=== PATIENT | male | born 1935 | race Caucasian/White ===

== ENCOUNTER 2016-03-25 08:07 | Outpatient (CLI) | payer MEDICARE, OTHER | END 2016-03-25 08:08 | disposition home or self-care (01) | DX: I48.91 Unspecified atrial fibrillation (principal) ==

== ENCOUNTER 2016-05-06 09:24 | Outpatient (CLI) | payer MEDICARE, OTHER | END 2016-05-06 09:25 | disposition home or self-care (01) | DX: I48.91 Unspecified atrial fibrillation (principal) ==

== ENCOUNTER 2016-06-17 07:20 | Outpatient (CLI) | payer MEDICARE, OTHER | END 2016-06-17 07:21 | disposition home or self-care (01) | DX: I48.91 Unspecified atrial fibrillation (principal) ==

== ENCOUNTER 2016-07-29 08:47 | Outpatient (CLI) | payer MEDICARE, OTHER ==
[2016-07-29 09:08] LABS: BASOPHILS # (AUTO) 0.1 10^3/uL (0.0-0.1); BASOPHILS % (AUTO) 1.1 %; EOSINOPHILS # (AUTO) 0.2 10^3/uL (0.0-0.7); EOSINOPHILS % (AUTO) 4.2 %; HCT - HEMATOCRIT 42.9 % (42.0-52.0); HGB - HEMOGLOBIN 14.3 g/dL (14.0-18.0); LYMPHOCYTES # (AUTO) 1.5 10^3/uL (1.5-3.5); LYMPHOCYTES % (AUTO) 32.4 %; MEAN CORPUSCULAR HEMOGLOBIN 31.8 pg (27.0-31.0); MEAN CORPUSCULAR HGB CONC 33.4 g/dL (32.0-36.0); MEAN CORPUSCULAR VOLUME 95.3 fL (80.0-94.0); MEAN PLATELET VOLUME 8.1 fL (7.4-11.4); MONOCYTES # (AUTO) 0.4 10^3/uL (0.0-1.0); MONOCYTES % (AUTO) 9.3 %; NEUTROPHILS # (AUTO) 2.5 10^3/uL (1.5-6.6); NUCLEATED RED BLOOD CELLS AUTO 0.1 /100WBC; RED CELL DISTRIBUTION WIDTH 13.2 % (12.0-15.0); UNCORRECTED WHITE BLOOD COUNT 4.8 x10^3/uL; WHITE BLOOD COUNT 4.8 x10^3/uL (4.8-10.8)
== END 2016-07-29 08:48 | disposition home or self-care (01) ==
LOC: LAB 08:47
PROVIDERS: ATTEND Internal Medicine Cardiovascular Disease
DX: I48.91 Unspecified atrial fibrillation (principal); Z79.899 Other long term (current) drug therapy
CPT/HCPCS: 36415; 85025; 85610

== ENCOUNTER 2016-09-10 07:04 | Outpatient (CLI) | payer MEDICARE, OTHER | END 2016-09-10 07:05 | disposition home or self-care (01) | LOC: LAB 07:04 | PROVIDERS: ATTEND Internal Medicine Cardiovascular Disease | DX: I48.91 Unspecified atrial fibrillation (principal) | CPT/HCPCS: 85610 ==

== ENCOUNTER 2016-10-22 08:06 | Outpatient (CLI) | payer MEDICARE, OTHER | END 2016-10-22 08:07 | disposition home or self-care (01) | LOC: LAB 08:06 | PROVIDERS: ATTEND Internal Medicine Cardiovascular Disease | DX: I48.91 Unspecified atrial fibrillation (principal) | CPT/HCPCS: 85610 ==

== ENCOUNTER 2016-11-26 10:23 | Outpatient (CLI) | payer MEDICARE, OTHER | END 2016-11-26 10:24 | disposition home or self-care (01) | LOC: LAB 10:23 | PROVIDERS: ATTEND Internal Medicine Cardiovascular Disease | DX: I48.91 Unspecified atrial fibrillation (principal) | CPT/HCPCS: 85610 ==

== ENCOUNTER 2017-03-09 14:04 | Outpatient (CLI) | payer MEDICARE, OTHER | END 2017-03-09 14:05 | disposition home or self-care (01) | LOC: LAB 14:04 | PROVIDERS: ATTEND Internal Medicine Cardiovascular Disease | DX: I48.91 Unspecified atrial fibrillation (principal) | CPT/HCPCS: 85610 ==

== ENCOUNTER 2017-04-21 08:23 | Outpatient (CLI) | payer MEDICARE, OTHER | END 2017-04-21 08:24 | disposition home or self-care (01) | LOC: LAB 08:23 | PROVIDERS: ATTEND Internal Medicine Cardiovascular Disease | DX: I48.91 Unspecified atrial fibrillation (principal) | CPT/HCPCS: 85610 ==

== ENCOUNTER 2017-06-02 08:29 | Outpatient (CLI) | payer MEDICARE, OTHER | END 2017-06-02 08:30 | disposition home or self-care (01) | LOC: LAB 08:29 | PROVIDERS: ATTEND Internal Medicine Cardiovascular Disease | DX: I48.91 Unspecified atrial fibrillation (principal) | CPT/HCPCS: 85610 ==

== ENCOUNTER 2017-07-14 09:37 | Outpatient (CLI) | payer MEDICARE, OTHER | END 2017-07-14 09:38 | disposition home or self-care (01) | LOC: LAB 09:37 | PROVIDERS: ATTEND Internal Medicine Cardiovascular Disease | DX: I48.91 Unspecified atrial fibrillation (principal) | CPT/HCPCS: 85610 ==

== ENCOUNTER 2017-08-25 08:55 | Outpatient (CLI) | payer MEDICARE, OTHER | END 2017-08-25 08:56 | disposition home or self-care (01) | LOC: LAB 08:55 | PROVIDERS: ATTEND Internal Medicine Cardiovascular Disease | DX: I48.91 Unspecified atrial fibrillation (principal) | CPT/HCPCS: 85610 ==

== ENCOUNTER 2017-09-06 07:42 | Outpatient (CLI) | payer MEDICARE, OTHER | END 2017-09-06 07:43 | disposition home or self-care (01) | LOC: LAB 07:42 | PROVIDERS: ATTEND Internal Medicine Cardiovascular Disease | DX: I48.91 Unspecified atrial fibrillation (principal) | CPT/HCPCS: 85610 ==

== ENCOUNTER 2017-09-27 10:00 | Outpatient (CLI) | payer MEDICARE, OTHER | END 2017-09-27 10:01 | disposition home or self-care (01) | LOC: LAB 10:00 | PROVIDERS: ATTEND Internal Medicine Cardiovascular Disease | DX: I48.91 Unspecified atrial fibrillation (principal) | CPT/HCPCS: 85610 ==

== ENCOUNTER 2017-10-25 15:48 | Outpatient (CLI) | payer MEDICARE, OTHER | END 2017-10-25 15:49 | disposition home or self-care (01) | LOC: LAB 15:48 | PROVIDERS: ATTEND Internal Medicine Cardiovascular Disease | DX: I48.91 Unspecified atrial fibrillation (principal) | CPT/HCPCS: 85610 ==

== ENCOUNTER 2017-11-22 07:37 | Outpatient (CLI) | payer MEDICARE, OTHER | END 2017-11-22 07:38 | disposition home or self-care (01) | LOC: LAB 07:37 | PROVIDERS: ATTEND Internal Medicine Cardiovascular Disease | DX: I48.91 Unspecified atrial fibrillation (principal) | CPT/HCPCS: 85610 ==

== ENCOUNTER 2018-01-03 07:55 | Outpatient (CLI) | payer MEDICARE, OTHER ==
[2018-01-03 08:43] LABS: EOSINOPHILS # (AUTO) 0.2 10^3/uL (0.0-0.7); HGB - HEMOGLOBIN 14.7 g/dL (14.0-18.0); LYMPHOCYTES # (AUTO) 1.4 10^3/uL (1.5-3.5); LYMPHOCYTES % (AUTO) 28.2 %; MEAN CORPUSCULAR HEMOGLOBIN 31.9 pg (27.0-31.0); MEAN CORPUSCULAR HGB CONC 33.7 g/dL (32.0-36.0); MEAN CORPUSCULAR VOLUME 94.6 fL (80.0-94.0); MONOCYTES # (AUTO) 0.4 10^3/uL (0.0-1.0); MONOCYTES % (AUTO) 7.4 %; NEUTROPHILS # (AUTO) 2.8 10^3/uL (1.5-6.6); NEUTROPHILS % (AUTO) 59.4 %; PLT - PLATELET COUNT 187 10^3/uL (130-450); RED BLOOD COUNT 4.62 10^6/uL (4.70-6.10); RED CELL DISTRIBUTION WIDTH 13.6 % (12.0-15.0); WHITE BLOOD COUNT 4.8 x10^3/uL (4.8-10.8)
[2018-01-03 08:44] LABS: INR 3.2 (0.8-1.2); PT - PROTHROMBIN TIME 35.7 secs (9.9-12.6)
[2018-01-03 09:03] LABS: ALBUMIN 4.2 g/dL (3.2-5.5); ALBUMIN/GLOBULIN RATIO 1.4 (1.0-2.2); ALKALINE PHOSPHATASE 74 IU/L (42-121); ALT ALANINE AMINOTRANSFERASE 23 IU/L (10-60); AST ASPARTATE AMINOTRANSFERASE 22 IU/L (10-42); BILIRUBIN,TOTAL 1.8 mg/dL (0.2-1.0); BUN - BLOOD UREA NITROGEN 17 mg/dL (6-20); CALCIUM 8.7 mg/dL (8.5-10.3); CARBON DIOXIDE - CO2 28 mmol/L (21-32); CHLORIDE 103 mmol/L (101-111); CHOL/HDL RATIO 3.6 (<5.0); CHOLESTEROL 130 mg/dL; CREATININE 0.9 mg/dL (0.6-1.2); GFR - MDRD 81 (>89); GLUCOSE 101 mg/dL (70-100); HDL CHOLESTEROL 36 mg/dL; LDL CHOLESTEROL,CALCULATED 79 mg/dL; LDL/HDL RATIO 2.2 (<3.6); SODIUM 137 mmol/L (135-145); TOTAL PROTEIN 7.2 g/dL (6.7-8.2); VLDL CHOLESTEROL 15 mg/dL
[2018-01-03 09:11] LABS: HB2 TOTAL 16.2 g/dL; HEMOGLOBIN A1C 0.67 g/dL; HEMOGLOBIN A1C % 5.9 % (4.6-6.2)
== END 2018-01-03 07:56 | disposition home or self-care (01) ==
LOC: LAB 07:55
PROVIDERS: ATTEND Physician Assistant Medical
DX: R73.9 Hyperglycemia, unspecified (principal); Z79.899 Other long term (current) drug therapy; I48.91 Unspecified atrial fibrillation; E78.2 Mixed hyperlipidemia
CPT/HCPCS: 36415; 80053; 80061; 83036; 83721; 84443; 85025; 85610

== ENCOUNTER 2018-01-31 13:05 | Outpatient (CLI) | payer MEDICARE, OTHER | END 2018-01-31 13:06 | disposition home or self-care (01) | LOC: LAB 13:05 | PROVIDERS: ATTEND Internal Medicine Cardiovascular Disease | DX: I48.91 Unspecified atrial fibrillation (principal) | CPT/HCPCS: 85610 ==

== ENCOUNTER 2018-02-15 15:26 | Outpatient (CLI) | payer MEDICARE, OTHER ==
--- NOTE | 2018-02-16 09:24 | Ultrasound Report ---
Reason: DIZZINESS ON STANDING Procedure Date: 02/15/2018 Accession Number: [id number] / [id number] Procedure: US - Carotid Doppler Complete CPT Code: FULL RESULT: EXAM: BILATERAL CAROTID AND VERTEBRAL ARTERY DUPLEX DOPPLER ULTRASOUND: EXAM DATE: 02/15/2018 03:47 PM CLINICAL HISTORY: Dizziness on standing. COMPARISON: Carotid doppler complete 11/18/2015 8:39 AM. TECHNIQUE: Grayscale imaging, color Doppler, and duplex spectral Doppler were used to evaluate the carotid and vertebral arteries bilaterally. Static images were obtained. FINDINGS: Visually, the right carotid bulb region demonstrates echogenic and hypoechoic plaque of approximately 60% of the lumen with approximately 60% luminal narrowing on color Doppler also identified in the proximal right ICA downstream of which spectral waveforms demonstrate progressive contribution of the diastolic flow component with preservation of brisk systolic upstroke. Approximately 25-50% stenosis is visually identified on grayscale in the left carotid bulb region. The proximal to mid left external carotid artery is occluded or near occluded with no confidently detected flow by spectral Doppler. Normal antegrade flow is present in bilateral vertebral arteries. VELOCITIES (cm/sec): Right CCA mid: PSV 82 cm/sec CCA dist: PSV 55 cm/sec ICA prox: PSV 58 cm/sec, EDV 19 cm/sec ICA mid: PSV 61 cm/sec, EDV 18 cm/sec ICA dist: PSV 41 cm/sec, EDV 11 cm/sec ECA: PSV 63 cm/sec Vert: PSV 51 cm/sec ICA/CCA: 0.74 Left CCA mid: PSV 99 cm/sec CCA dist: PSV 64 cm/sec ICA prox: PSV 59 cm/sec, EDV 20 cm/sec ICA mid: PSV 82 cm/sec, EDV 29 cm/sec ICA dist: PSV 48 cm/sec, EDV 16 cm/sec ECA: PSV 81 cm/sec Vert: PSV 35 cm/sec ICA/CCA: 0.82 ICA diameter stenosis: Right: <50% by velocity and <70% by NASCET criteria. Left: <50% by velocity and <70% by NASCET criteria. IMPRESSION: 1. Subjectively approximate 50-60% visual narrowing of both carotid bulb regions as well as the right proximal ICA. 2. In the right carotid artery there are no elevated carotid artery velocities to meet hemodynamic criteria for significant stenosis. However, there is a progressively increasing diastolic component to the right internal carotid artery waveform suggestive of at least mild hemodynamic effect of the visually detected proximal ICA stenosis. 3. In the left carotid artery there are no elevated carotid artery velocities to suggest hemodynamically significant stenosis. 4. Interval near occlusion or complete occlusion of the left external carotid artery is suspected. 5.Normal antegrade flow is present in bilateral vertebral arteries. Given interval progression of findings compared to 2016, recommend consideration for CTA of the neck to clarify the findings. General Recommendations: Stenosis =50% ICA - Follow-up ultrasound 6-12 months Stenosis <50% ICA - High Risk Patient with plaque - Follow-up ultrasound 1-2 years Normal Study but High Risk Patient - Follow-up ultrasound 3-5 years Management recommendations and diagnostic criteria are based on current IAC endorsed standards in Carotid Artery Stenosis: Grayscale and Doppler Ultrasound Diagnosis. Validated velocity measurements with angiographic measurements and velocity criteria are extrapolated from diameter data as defined by the Society of Radiologists in Ultrasound Consensus Conference Radiology 2003; 229;340-346. RADIA
== END 2018-02-15 15:27 | disposition home or self-care (01) ==
LOC: DI 15:26
PROVIDERS: ATTEND Physician Assistant Medical
DX: R42 Dizziness and giddiness (principal)
CPT/HCPCS: 93880

== ENCOUNTER 2018-02-27 10:52 | Outpatient (CLI) | payer MEDICARE, OTHER ==
[2018-02-27] MEDS ORDERED: IOVERSOL 320 100 ML VIAL IVP ONE ×2 (11:00→16:38)
[2018-02-27 11:13] LABS: CREATININE 0.7 mg/dL (0.6-1.2)
--- NOTE | 2018-02-27 13:10 | CT Report ---
Reason: CAROTID ARTERY STENOSIS,BILATERAL, Procedure Date: 02/27/2018 Accession Number: [id number] / [id number] Procedure: CT - Neck Angio CPT Code: FULL RESULT: EXAM: CT ANGIOGRAM NECK EXAM DATE: 02/27/2018 11:58 AM. CLINICAL HISTORY: Carotid artery stenosis, bilateral. COMPARISON: Carotid ultrasound report 02/15/2018. TECHNIQUE: Routine axial helical imaging was performed from the skull base through the aortic arch. Reconstructions: Routine multiplanar 3D MIP reconstructions. IV Contrast: Optiray 320 80 mL. Evaluation of arterial stenosis is based on a NASCET method of measurement. In accordance with CT protocol optimization, one or more of the following dose reduction techniques were utilized for this exam: automated exposure control, adjustment of mA and/or KV based on patient size, or use of iterative reconstructive technique. FINDINGS: Right Carotid: Atherosclerotic plaque is seen involving the origin of the cervical ICA and proximal cervical ICA. This results in a less than 50% stenosis. Left Carotid: Atherosclerotic plaque is seen in the origin and proximal cervical ICA. This results in a less than 50% stenosis of the cervical ICA. Vertebrals: The left vertebral artery is dominant. Minimal narrowing is seen at the origin of the dominant left vertebral artery. Areas of mild stenosis are seen in the V2 segment of the nondominant right vertebral artery due to degenerative changes in the spine. The nondominant right cervical vertebral arteries patent Intracranial Circulation: The intracranial circulation is not seen in its entirety. There is atherosclerotic calcification and a high-grade stenosis of the distal right vertebral artery at its more distal V4 segment. Moderate stenosis is seen in the mid V4 segment and more proximal V4 segment of the left vertebral artery. No high-grade stenosis or occlusion is seen in the M1 segment of either MCA or in the basilar trunk. There is a origin to the right [employer] via a posterior communicating artery. Mild narrowing is seen due to atherosclerosis in the cavernous ICA bilaterally. Great vessel origins: No significant stenosis. Other: No mass is present in either orbit. There appears to be a defect in the left anterior frontal scalp. No mass is present in either parotid gland or in either submandibular gland. The thyroid gland is not enlarged. No bulky lymphadenopathy is identified in the neck. No suspicious spiculated mass is present in either lung apex. No suspicious lytic or blastic region is present in the cervical vertebral bodies. Mucosal thickening is seen in the left maxillary sinus. Retention cyst/polyp formation is seen in the right maxillary sinus. IMPRESSION: 1. No hemodynamically significant stenosis is present in either cervical ICA. 2. Areas of mild stenosis are seen in the nondominant right vertebral artery. This is due to degenerative changes in the spine 3. Intracranial stenosis is present in each vertebral artery V4 segment. 4. Mild narrowing is seen in the cavernous ICA bilaterally. 5. Left maxillary sinus mucosal thickening. Right maxillary sinus retention cyst/polyp formation. RADIA
== END 2018-02-27 10:53 | disposition home or self-care (01) ==
LOC: LAB 10:52
PROVIDERS: ATTEND Physician Assistant Medical
DX: I65.23 Occlusion and stenosis of bilateral carotid arteries (principal); I65.03 Occlusion and stenosis of bilateral vertebral arteries; J34.1 Cyst and mucocele of nose and nasal sinus
CPT/HCPCS: 36415; 70498; 82565; Q9967

== ENCOUNTER 2018-03-14 09:17 | Outpatient (CLI) | payer MEDICARE, OTHER | END 2018-03-14 09:18 | disposition home or self-care (01) | LOC: LAB 09:17 | PROVIDERS: ATTEND Internal Medicine Cardiovascular Disease | DX: I48.91 Unspecified atrial fibrillation (principal) | CPT/HCPCS: 85610 ==

== ENCOUNTER 2018-05-31 08:17 | Outpatient (CLI) | payer MEDICARE, OTHER | END 2018-05-31 08:18 | disposition home or self-care (01) | LOC: LAB 08:17 | PROVIDERS: ATTEND Family Medicine | DX: I48.91 Unspecified atrial fibrillation (principal); Z79.01 Long term (current) use of anticoagulants | CPT/HCPCS: 85610 ==

== ENCOUNTER 2018-07-13 08:49 | Outpatient (CLI) | payer MEDICARE, OTHER ==
[2018-07-13 09:36] LABS: PT - PROTHROMBIN TIME 32.8 secs (9.9-12.6)
== END 2018-07-13 08:50 | disposition home or self-care (01) ==
LOC: LAB 08:49
PROVIDERS: ATTEND Internal Medicine Cardiovascular Disease
DX: Z51.81 Encounter for therapeutic drug level monitoring (principal); Z79.01 Long term (current) use of anticoagulants
CPT/HCPCS: 36415; 85610

== ENCOUNTER 2018-08-31 09:45 | Outpatient (CLI) | payer MEDICARE, OTHER | END 2018-08-31 09:46 | disposition home or self-care (01) | LOC: LAB 09:45 | PROVIDERS: ATTEND Internal Medicine Cardiovascular Disease | DX: Z51.81 Encounter for therapeutic drug level monitoring (principal); Z79.01 Long term (current) use of anticoagulants | CPT/HCPCS: 85610 ==

== ENCOUNTER 2018-10-17 08:43 | Outpatient (CLI) | payer MEDICARE, OTHER | END 2018-10-17 08:44 | disposition home or self-care (01) | LOC: LAB 08:43 | PROVIDERS: ATTEND Internal Medicine Cardiovascular Disease | DX: Z51.81 Encounter for therapeutic drug level monitoring (principal); Z79.01 Long term (current) use of anticoagulants | CPT/HCPCS: 85610 ==

== ENCOUNTER 2018-11-28 08:08 | Outpatient (CLI) | payer MEDICARE, OTHER | END 2018-11-28 08:09 | disposition home or self-care (01) | LOC: LAB 08:08 | PROVIDERS: ATTEND Internal Medicine Cardiovascular Disease | DX: Z51.81 Encounter for therapeutic drug level monitoring (principal); Z79.01 Long term (current) use of anticoagulants | CPT/HCPCS: 85610 ==

== ENCOUNTER 2019-01-09 07:09 | Outpatient (CLI) | payer MEDICARE, OTHER | END 2019-01-09 07:10 | disposition home or self-care (01) | LOC: LAB 07:09 | PROVIDERS: ATTEND Internal Medicine Cardiovascular Disease | DX: Z51.81 Encounter for therapeutic drug level monitoring (principal); Z79.01 Long term (current) use of anticoagulants | CPT/HCPCS: 85610 ==

== ENCOUNTER 2019-02-05 08:27 | Outpatient (CLI) | payer MEDICARE, OTHER ==
[2019-02-05 09:10] LABS: BASOPHILS # (AUTO) 0.1 10^3/uL (0.0-0.1); BASOPHILS % (AUTO) 1.1 %; EOSINOPHILS # (AUTO) 0.2 10^3/uL (0.0-0.7); EOSINOPHILS % (AUTO) 3.9 %; HGB - HEMOGLOBIN 14.9 g/dL (14.0-18.0); LYMPHOCYTES # (AUTO) 1.6 10^3/uL (1.5-3.5); LYMPHOCYTES % (AUTO) 26.3 %; MEAN CORPUSCULAR HEMOGLOBIN 31.5 pg (27.0-31.0); MEAN CORPUSCULAR HGB CONC 32.3 g/dL (32.0-36.0); MEAN CORPUSCULAR VOLUME 97.5 fL (80.0-94.0); MEAN PLATELET VOLUME 10.1 fL (7.4-11.4); MONOCYTES # (AUTO) 0.4 10^3/uL (0.0-1.0); NEUTROPHILS # (AUTO) 3.8 10^3/uL (1.5-6.6); NEUTROPHILS % (AUTO) 62.4 %; PLT - PLATELET COUNT 233 10^3/uL (130-450); RED BLOOD COUNT 4.73 10^6/uL (4.70-6.10); WHITE BLOOD COUNT 6.1 x10^3/uL (4.8-10.8)
[2019-02-05 09:27] LABS: ALBUMIN/GLOBULIN RATIO 1.1 (1.0-2.2); ALKALINE PHOSPHATASE 73 IU/L (42-121); ALT ALANINE AMINOTRANSFERASE 29 IU/L (10-60); AST ASPARTATE AMINOTRANSFERASE 24 IU/L (10-42); BILIRUBIN,TOTAL 1.5 mg/dL (0.2-1.0); BUN - BLOOD UREA NITROGEN 15 mg/dL (6-20); CALCIUM 9.2 mg/dL (8.5-10.3); CARBON DIOXIDE - CO2 32 mmol/L (21-32); CHLORIDE 103 mmol/L (101-111); CHOLESTEROL 130 mg/dL; CREATININE 0.9 mg/dL (0.6-1.2); GFR - MDRD 81 (>89); GLUCOSE 108 mg/dL (70-100); HDL CHOLESTEROL 43 mg/dL; LDL CHOLESTEROL,CALCULATED 68 mg/dL; LDL/HDL RATIO 1.6 (<3.6); SODIUM 140 mmol/L (135-145); TOTAL PROTEIN 7.6 g/dL (6.7-8.2); VLDL CHOLESTEROL 19 mg/dL
[2019-02-05 10:22] LABS: HEMOGLOBIN A1C 0.66 g/dL; HEMOGLOBIN A1C % 6.2 % (4.6-6.2)
== END 2019-02-05 08:28 | disposition home or self-care (01) ==
LOC: LAB 08:27
PROVIDERS: ATTEND Nurse Practitioner
DX: Z00.00 Encounter for general adult medical examination without abnormal findings (principal); E80.7 Disorder of bilirubin metabolism, unspecified; R42 Dizziness and giddiness; Z12.5 Encounter for screening for malignant neoplasm of prostate; Z79.899 Other long term (current) drug therapy; R73.9 Hyperglycemia, unspecified; E78.2 Mixed hyperlipidemia; I48.91 Unspecified atrial fibrillation; I49.9 Cardiac arrhythmia, unspecified
CPT/HCPCS: 36415; 80053; 80061; 83036; 84443; 85025; G0103; 83721; 84153

== ENCOUNTER 2019-02-13 09:50 | Outpatient (CLI) | payer MEDICARE, OTHER ==
--- NOTE | 2019-02-13 13:32 | XRAY Report ---
Reason: HIP LEFT LOW BACK PAIN Procedure Date: 02/13/2019 Accession Number: [id number] / [id number] Procedure: XR - Lumbar Spine 2 View CPT Code: Final Report FULL RESULT: EXAM: LUMBOSACRAL SPINE RADIOGRAPHY EXAM DATE: 02/13/2019 10:22 AM. CLINICAL HISTORY: Hip and left low back pain. COMPARISONS: XR LUMBOSACRAL SPINE 4 VIEWS 03/12/2011 8:22 AM. TECHNIQUE: 3 views. FINDINGS: Alignment: Up to 5 mm anterolisthesis of L3 on L4 and up to 4 mm anterolisthesis of L4 on L5, possibly exacerbated by positioning. No significant scoliosis. Bones: Five yqy-jyr-wjfnyrk lumbar vertebral bodies are present. No fractures or bone lesions. Disks: All disk space heights are mostly preserved. There is prominent marginal osteophytosis at T11-T12 and T12-L1. Facets: There is facet arthropathy throughout the lumbar spine, at least moderate. Sacroiliac Joints: Unremarkable. Soft Tissues: Normal. The visualized bowel gas pattern is normal. IMPRESSION: Facet arthropathy and multilevel anterolisthesis as described. RADIA
--- NOTE | 2019-02-13 13:34 | XRAY Report ---
Reason: HIP LEFT LOW BACK PAIN Procedure Date: 02/13/2019 Accession Number: [id number] / [id number] Procedure: XR - Hip w/Pelvis 2-3V LT CPT Code: Final Report FULL RESULT: EXAM: LEFT HIP RADIOGRAPHY EXAM DATE: 02/13/2019 10:22 AM. CLINICAL HISTORY: Hip left; low back pain. COMPARISON: None. TECHNIQUE: 2 views of the left hip and a frontal view of the pelvis were obtained. FINDINGS: Bones: Normal. No fractures or bone lesion. Joints: No significant marginal osteophytosis. No dislocation. The hip joint space is mildly narrowed bilaterally. Soft Tissues: Normal. No soft tissue swelling. IMPRESSION: Mild degenerative changes. RADIA
== END 2019-02-13 09:51 | disposition home or self-care (01) ==
LOC: DI 09:50
PROVIDERS: ATTEND Nurse Practitioner
DX: M16.12 Unilateral primary osteoarthritis, left hip (principal); M47.816 Spondylosis without myelopathy or radiculopathy, lumbar region; M43.16 Spondylolisthesis, lumbar region
CPT/HCPCS: 72100

== ENCOUNTER 2019-02-20 10:53 | Outpatient (CLI) | payer MEDICARE, OTHER | END 2019-02-20 10:54 | disposition home or self-care (01) | LOC: LAB 10:53 | PROVIDERS: ATTEND Internal Medicine Cardiovascular Disease | DX: Z51.81 Encounter for therapeutic drug level monitoring (principal); Z79.01 Long term (current) use of anticoagulants | CPT/HCPCS: 85610 ==

== ENCOUNTER 2019-03-20 09:18 | Outpatient (CLI) | payer MEDICARE | END 2019-03-20 09:19 | disposition home or self-care (01) | LOC: LAB 09:18 | PROVIDERS: ATTEND Internal Medicine Cardiovascular Disease | DX: Z51.81 Encounter for therapeutic drug level monitoring (principal); Z79.01 Long term (current) use of anticoagulants | CPT/HCPCS: 85610 ==

== ENCOUNTER 2019-04-17 08:27 | Outpatient (CLI) | payer MEDICARE | END 2019-04-17 08:28 | disposition home or self-care (01) | LOC: LAB 08:27 | PROVIDERS: ATTEND Internal Medicine Cardiovascular Disease | DX: Z51.81 Encounter for therapeutic drug level monitoring (principal); Z79.01 Long term (current) use of anticoagulants | CPT/HCPCS: 85610 ==

== ENCOUNTER 2019-05-29 08:32 | Outpatient (CLI) | payer MEDICARE | END 2019-05-29 08:33 | disposition home or self-care (01) | LOC: LAB 08:32 | PROVIDERS: ATTEND Internal Medicine Cardiovascular Disease | DX: Z51.81 Encounter for therapeutic drug level monitoring (principal); Z79.01 Long term (current) use of anticoagulants | CPT/HCPCS: 85610 ==

== ENCOUNTER 2019-07-10 08:42 | Outpatient (CLI) | payer MEDICARE | END 2019-07-10 08:43 | disposition home or self-care (01) | LOC: LAB 08:42 | PROVIDERS: ATTEND Internal Medicine Cardiovascular Disease | DX: Z51.81 Encounter for therapeutic drug level monitoring (principal); Z79.01 Long term (current) use of anticoagulants | CPT/HCPCS: 85610 ==

== ENCOUNTER 2019-08-21 09:59 | Outpatient (CLI) | payer MEDICARE | END 2019-08-21 10:00 | disposition home or self-care (01) | LOC: LAB 09:59 | PROVIDERS: ATTEND Internal Medicine Cardiovascular Disease | DX: Z51.81 Encounter for therapeutic drug level monitoring (principal); Z79.01 Long term (current) use of anticoagulants | CPT/HCPCS: 85610 ==

== ENCOUNTER 2019-10-03 07:24 | Outpatient (CLI) | payer MEDICARE | END 2019-10-03 07:25 | disposition home or self-care (01) | LOC: LAB 07:24 | PROVIDERS: ATTEND Internal Medicine Cardiovascular Disease | DX: Z51.81 Encounter for therapeutic drug level monitoring (principal); Z79.01 Long term (current) use of anticoagulants | CPT/HCPCS: 85610 ==

== ENCOUNTER 2019-12-28 08:34 | Outpatient (CLI) | payer MEDICARE | END 2019-12-28 08:35 | disposition home or self-care (01) | LOC: LAB 08:34 | PROVIDERS: ATTEND Nurse Practitioner | DX: R53.83 Other fatigue (principal); N52.9 Male erectile dysfunction, unspecified | CPT/HCPCS: 36415; 84403 ==

== ENCOUNTER 2020-01-10 08:09 | Outpatient (CLI) | payer MEDICARE | END 2020-01-10 08:10 | disposition home or self-care (01) | LOC: LAB 08:09 | PROVIDERS: ATTEND Internal Medicine Cardiovascular Disease | DX: Z51.81 Encounter for therapeutic drug level monitoring (principal); Z79.01 Long term (current) use of anticoagulants | CPT/HCPCS: 85610 ==

== ENCOUNTER 2020-01-14 09:28 | Outpatient (CLI) | payer MEDICARE | END 2020-01-14 09:29 | disposition home or self-care (01) | LOC: LAB 09:28 | PROVIDERS: ATTEND Nurse Practitioner | DX: E29.1 Testicular hypofunction (principal) | CPT/HCPCS: 36415; 84403 ==

== ENCOUNTER 2020-01-31 09:29 | Outpatient (CLI) | payer MEDICARE | END 2020-01-31 09:30 | disposition home or self-care (01) | LOC: LAB 09:29 | PROVIDERS: ATTEND Internal Medicine Cardiovascular Disease | DX: Z51.81 Encounter for therapeutic drug level monitoring (principal); Z79.01 Long term (current) use of anticoagulants | CPT/HCPCS: 85610 ==

== ENCOUNTER 2020-03-13 07:06 | Outpatient (CLI) | payer BC ==
[2020-03-13 07:48] LABS: CHOL/HDL RATIO 3.4 (<5.0); CHOLESTEROL 128 mg/dL; HDL CHOLESTEROL 38 mg/dL; LDL CHOLESTEROL,CALCULATED 68 mg/dL; LDL/HDL RATIO 1.8 (<3.6); VLDL CHOLESTEROL 22 mg/dL
== END 2020-03-13 07:07 | disposition home or self-care (01) ==
LOC: LAB 07:06
PROVIDERS: ATTEND Internal Medicine Cardiovascular Disease
DX: I10 Essential (primary) hypertension (principal); Z51.81 Encounter for therapeutic drug level monitoring; Z79.01 Long term (current) use of anticoagulants
CPT/HCPCS: 36415; 80061; 83721; 85610

== ENCOUNTER 2020-04-24 08:00 | Outpatient (CLI) | payer MEDICARE | END 2020-04-24 08:01 | disposition home or self-care (01) | LOC: LAB 08:00 | PROVIDERS: ATTEND Internal Medicine Cardiovascular Disease | DX: Z51.81 Encounter for therapeutic drug level monitoring (principal); Z79.01 Long term (current) use of anticoagulants | CPT/HCPCS: 85610 ==

== ENCOUNTER 2020-06-05 08:10 | Outpatient (CLI) | payer MEDICARE | END 2020-06-05 08:11 | disposition home or self-care (01) | LOC: LAB 08:10 | PROVIDERS: ATTEND Internal Medicine Cardiovascular Disease | DX: Z51.81 Encounter for therapeutic drug level monitoring (principal); Z79.01 Long term (current) use of anticoagulants | CPT/HCPCS: 85610 ==

== ENCOUNTER 2020-07-17 07:23 | Outpatient (CLI) | payer MEDICARE | END 2020-07-17 07:24 | disposition home or self-care (01) | LOC: LAB 07:23 | PROVIDERS: ATTEND Internal Medicine Cardiovascular Disease | DX: Z51.81 Encounter for therapeutic drug level monitoring (principal); Z79.01 Long term (current) use of anticoagulants | CPT/HCPCS: 36416; 85610 ==

== ENCOUNTER 2020-08-28 08:27 | Outpatient (CLI) | payer MEDICARE | END 2020-08-28 08:28 | disposition home or self-care (01) | LOC: LAB 08:27 | PROVIDERS: ATTEND Internal Medicine Cardiovascular Disease | DX: Z51.81 Encounter for therapeutic drug level monitoring (principal); Z79.01 Long term (current) use of anticoagulants | CPT/HCPCS: 36416; 85610 ==

== ENCOUNTER 2020-10-09 07:53 | Outpatient (CLI) | payer MEDICARE | END 2020-10-09 07:54 | disposition home or self-care (01) | LOC: LAB 07:53 | PROVIDERS: ATTEND Internal Medicine Cardiovascular Disease | DX: Z51.81 Encounter for therapeutic drug level monitoring (principal); Z79.01 Long term (current) use of anticoagulants | CPT/HCPCS: 36416; 85610 ==

== ENCOUNTER 2020-10-23 07:53 | Outpatient (CLI) | payer MEDICARE ==
[2020-10-23 08:09] LABS: HCT - HEMATOCRIT 43.9 % (42.0-52.0); HGB - HEMOGLOBIN 14.7 g/dL (14.0-18.0); MEAN CORPUSCULAR HEMOGLOBIN 32.4 pg (27.0-31.0); MEAN CORPUSCULAR HGB CONC 33.5 g/dL (32.0-36.0); MEAN CORPUSCULAR VOLUME 96.7 fL (80.0-94.0); MEAN PLATELET VOLUME 9.9 fL (7.4-11.4); RED BLOOD COUNT 4.54 10^6/uL (4.70-6.10); RED CELL DISTRIBUTION WIDTH 12.9 % (12.0-15.0); WHITE BLOOD COUNT 6.1 x10^3/uL (4.8-10.8)
[2020-10-23 08:29] LABS: CHOL/HDL RATIO 3.1 (<5.0); CHOLESTEROL 130 mg/dL; HDL CHOLESTEROL 42 mg/dL; LDL CHOLESTEROL,CALCULATED 70 mg/dL; LDL/HDL RATIO 1.7 (<3.6); TRIGLYCERIDES 89 mg/dL; VLDL CHOLESTEROL 18 mg/dL
== END 2020-10-23 07:54 | disposition home or self-care (01) ==
LOC: LAB 07:53
PROVIDERS: ATTEND Internal Medicine Cardiovascular Disease
DX: I25.2 Old myocardial infarction (principal); I48.91 Unspecified atrial fibrillation
CPT/HCPCS: 36415; 80061; 83721; 85027; 85610

== ENCOUNTER 2020-12-18 08:25 | Outpatient (CLI) | payer MEDICARE | END 2020-12-18 08:26 | disposition home or self-care (01) | LOC: LAB 08:25 | PROVIDERS: ATTEND Internal Medicine Cardiovascular Disease | DX: Z51.81 Encounter for therapeutic drug level monitoring (principal); Z79.01 Long term (current) use of anticoagulants | CPT/HCPCS: 36416; 85610 ==

== ENCOUNTER 2021-02-12 15:00 | Outpatient (CLI) | payer MEDICARE | END 2021-02-12 15:01 | disposition home or self-care (01) | LOC: LAB 15:00 | PROVIDERS: ATTEND Internal Medicine Cardiovascular Disease | DX: Z51.81 Encounter for therapeutic drug level monitoring (principal); Z79.01 Long term (current) use of anticoagulants | CPT/HCPCS: 36416; 85610 ==

== ENCOUNTER 2021-04-09 08:14 | Outpatient (CLI) | payer MEDICARE | END 2021-04-09 08:15 | disposition home or self-care (01) | LOC: LAB 08:14 | PROVIDERS: ATTEND Internal Medicine Cardiovascular Disease | DX: Z51.81 Encounter for therapeutic drug level monitoring (principal); Z79.01 Long term (current) use of anticoagulants | CPT/HCPCS: 36416; 85610 ==

== ENCOUNTER 2021-05-05 14:39 | Outpatient (CLI) | payer MEDICARE | END 2021-05-05 14:40 | disposition home or self-care (01) | LOC: LAB 14:39 | PROVIDERS: ATTEND Internal Medicine Cardiovascular Disease | DX: Z51.81 Encounter for therapeutic drug level monitoring (principal); Z79.01 Long term (current) use of anticoagulants | CPT/HCPCS: 36416; 85610 ==

== ENCOUNTER 2021-06-04 13:37 | Outpatient (CLI) | payer MEDICARE | END 2021-06-04 13:38 | disposition home or self-care (01) | LOC: LAB 13:37 | PROVIDERS: ATTEND Internal Medicine Cardiovascular Disease | DX: Z51.81 Encounter for therapeutic drug level monitoring (principal); Z79.01 Long term (current) use of anticoagulants | CPT/HCPCS: 36416; 85610 ==

== ENCOUNTER 2021-06-30 13:59 | Outpatient (CLI) | payer MEDICARE | END 2021-06-30 14:00 | disposition home or self-care (01) | LOC: LAB 13:59 | PROVIDERS: ATTEND Internal Medicine Cardiovascular Disease | DX: Z51.81 Encounter for therapeutic drug level monitoring (principal); Z79.01 Long term (current) use of anticoagulants | CPT/HCPCS: 36416; 85610 ==

== ENCOUNTER 2021-09-22 07:36 | Outpatient (CLI) | payer MEDICARE | END 2021-09-22 07:37 | disposition home or self-care (01) | LOC: LAB 07:36 | PROVIDERS: ATTEND Internal Medicine Cardiovascular Disease | DX: Z51.81 Encounter for therapeutic drug level monitoring (principal); Z79.01 Long term (current) use of anticoagulants | CPT/HCPCS: 36416; 85610 ==

== ENCOUNTER 2021-11-16 07:55 | Outpatient (CLI) | payer MEDICARE | END 2021-11-16 07:56 | disposition home or self-care (01) | LOC: LAB 07:55 | PROVIDERS: ATTEND Internal Medicine Cardiovascular Disease | DX: Z51.81 Encounter for therapeutic drug level monitoring (principal); Z79.01 Long term (current) use of anticoagulants | CPT/HCPCS: 36416; 85610 ==

== ENCOUNTER 2022-01-11 10:20 | Outpatient (CLI) | payer MEDICARE | END 2022-01-11 10:21 | disposition home or self-care (01) | LOC: LAB 10:20 | PROVIDERS: ATTEND Internal Medicine Cardiovascular Disease | DX: Z51.81 Encounter for therapeutic drug level monitoring (principal); Z79.01 Long term (current) use of anticoagulants | CPT/HCPCS: 36416; 85610 ==

== ENCOUNTER 2022-03-15 08:14 | Outpatient (CLI) | payer MEDICARE | END 2022-03-15 08:15 | disposition home or self-care (01) | LOC: LAB 08:14 | PROVIDERS: ATTEND Internal Medicine Cardiovascular Disease | DX: Z51.81 Encounter for therapeutic drug level monitoring (principal); Z79.01 Long term (current) use of anticoagulants | CPT/HCPCS: 36416; 85610 ==

== ENCOUNTER 2022-05-10 10:08 | Outpatient (CLI) | payer MEDICARE | END 2022-05-10 10:09 | disposition home or self-care (01) | LOC: LAB 10:08 | PROVIDERS: ATTEND Internal Medicine Cardiovascular Disease | DX: Z51.81 Encounter for therapeutic drug level monitoring (principal); Z79.01 Long term (current) use of anticoagulants | CPT/HCPCS: 36416; 85610 ==

== ENCOUNTER 2022-07-05 14:21 | Outpatient (CLI) | payer MEDICARE | END 2022-07-05 14:22 | disposition home or self-care (01) | LOC: LAB 14:21 | PROVIDERS: ATTEND Internal Medicine Cardiovascular Disease | DX: Z51.81 Encounter for therapeutic drug level monitoring (principal); Z79.01 Long term (current) use of anticoagulants | CPT/HCPCS: 36416; 85610 ==

== ENCOUNTER 2022-08-30 10:03 | Outpatient (CLI) | payer MEDICARE | END 2022-08-30 10:04 | disposition home or self-care (01) | LOC: LAB 10:03 | PROVIDERS: ATTEND Internal Medicine Cardiovascular Disease | DX: Z51.81 Encounter for therapeutic drug level monitoring (principal); Z79.01 Long term (current) use of anticoagulants | CPT/HCPCS: 36416; 85610 ==

== ENCOUNTER 2022-10-27 11:35 | Outpatient (CLI) | payer MEDICARE | END 2022-10-27 11:36 | disposition home or self-care (01) | LOC: LAB 11:35 | PROVIDERS: ATTEND Internal Medicine Cardiovascular Disease | DX: Z51.81 Encounter for therapeutic drug level monitoring (principal); Z79.01 Long term (current) use of anticoagulants | CPT/HCPCS: 36416; 85610 ==

== ENCOUNTER 2023-02-17 08:15 | Outpatient (CLI) | payer MEDICARE | END 2023-02-17 08:16 | disposition home or self-care (01) | LOC: LAB 08:15 | PROVIDERS: ATTEND Internal Medicine Cardiovascular Disease | DX: Z51.81 Encounter for therapeutic drug level monitoring (principal); Z79.01 Long term (current) use of anticoagulants | CPT/HCPCS: 36416; 85610 ==

== ENCOUNTER 2023-04-11 07:56 | Outpatient (CLI) | payer MEDICARE ==
[2023-04-11 08:37] LABS: BASOPHILS # (AUTO) 0.1 10^3/uL (0.0-0.1); BASOPHILS % (AUTO) 0.8 %; EOSINOPHILS # (AUTO) 0.4 10^3/uL (0.0-0.7); EOSINOPHILS % (AUTO) 5.8 %; HCT - HEMATOCRIT 43.2 % (42.0-52.0); HGB - HEMOGLOBIN 13.8 g/dL (14.0-18.0); LYMPHOCYTES # (AUTO) 1.2 10^3/uL (1.5-3.5); LYMPHOCYTES % (AUTO) 16.5 %; MEAN CORPUSCULAR HEMOGLOBIN 30.5 pg (27.0-31.0); MEAN CORPUSCULAR HGB CONC 31.9 g/dL (32.0-36.0); MEAN CORPUSCULAR VOLUME 95.6 fL (80.0-94.0); MEAN PLATELET VOLUME 9.1 fL (7.4-11.4); MONOCYTES # (AUTO) 0.5 10^3/uL (0.0-1.0); MONOCYTES % (AUTO) 6.8 %; NEUTROPHILS # (AUTO) 5.2 10^3/uL (1.5-6.6); NEUTROPHILS % (AUTO) 70.1 %; PLT - PLATELET COUNT 254 10^3/uL (130-450); RED BLOOD COUNT 4.52 10^6/uL (4.70-6.10); RED CELL DISTRIBUTION WIDTH 12.9 % (12.0-15.0); WHITE BLOOD COUNT 7.5 x10^3/uL (4.8-10.8)
[2023-04-11 08:50] LABS: ALBUMIN 4.1 g/dL (3.2-5.5); ALBUMIN/GLOBULIN RATIO 1.2 (1.0-2.2); ALKALINE PHOSPHATASE 73 IU/L (42-121); ALT ALANINE AMINOTRANSFERASE 34 IU/L (10-60); AST ASPARTATE AMINOTRANSFERASE 28 IU/L (10-42); BUN - BLOOD UREA NITROGEN 16 mg/dL (6-20); CALCIUM 9.5 mg/dL (8.5-10.3); CARBON DIOXIDE - CO2 31 mmol/L (21-32); CHLORIDE 100 mmol/L (101-111); CHOL/HDL RATIO 3.3 (<5.0); CHOLESTEROL 118 mg/dL; GFR - MDRD 71 (>89); GLUCOSE 98 mg/dL (74-104); HDL CHOLESTEROL 36 mg/dL; LDL CHOLESTEROL,CALCULATED 59 mg/dL; LDL/HDL RATIO 1.6 (<3.6); POTASSIUM 4.3 mmol/L (3.5-4.5); SODIUM 135 mmol/L (135-145); TOTAL PROTEIN 7.4 g/dL (6.4-8.9); TRIGLYCERIDES 116 mg/dL (48-352); VLDL CHOLESTEROL 23 mg/dL
[2023-04-11 09:04] LABS: THYROID STIMULATING HORMONE 1.89 uIU/mL (0.34-5.60)
[2023-04-11 09:05] LABS: PSA TOTAL 1.849 ng/mL (0.000-2.000)
== END 2023-04-11 07:57 | disposition home or self-care (01) ==
LOC: LAB 07:56
PROVIDERS: ATTEND Internal Medicine
DX: I48.91 Unspecified atrial fibrillation (principal); I25.10 Atherosclerotic heart disease of native coronary artery without angina pectoris; E78.5 Hyperlipidemia, unspecified; C43.9 Malignant melanoma of skin, unspecified; C80.1 Malignant (primary) neoplasm, unspecified; Z79.899 Other long term (current) drug therapy; Z51.81 Encounter for therapeutic drug level monitoring; Z79.01 Long term (current) use of anticoagulants
CPT/HCPCS: 36415; 80053; 80061; 83721; 84153; 84443; 84550; 85025; 85610

== ENCOUNTER 2023-04-25 11:31 | Outpatient (CLI) | payer MEDICARE | END 2023-04-25 11:32 | disposition home or self-care (01) | LOC: LAB 11:31 | PROVIDERS: ATTEND Internal Medicine Cardiovascular Disease | DX: Z51.81 Encounter for therapeutic drug level monitoring (principal); Z79.01 Long term (current) use of anticoagulants | CPT/HCPCS: 36416; 85610 ==

== ENCOUNTER 2023-06-20 08:18 | Outpatient (CLI) | payer MEDICARE | END 2023-06-20 08:19 | disposition home or self-care (01) | LOC: LAB 08:18 | PROVIDERS: ATTEND Internal Medicine Cardiovascular Disease | DX: Z51.81 Encounter for therapeutic drug level monitoring (principal); Z79.01 Long term (current) use of anticoagulants | CPT/HCPCS: 36416; 85610 ==

== ENCOUNTER 2023-06-30 07:36 | Outpatient (CLI) | payer MEDICARE | END 2023-06-30 07:37 | disposition home or self-care (01) | LOC: LAB 07:36 | PROVIDERS: ATTEND Internal Medicine Cardiovascular Disease | DX: Z51.81 Encounter for therapeutic drug level monitoring (principal); Z79.01 Long term (current) use of anticoagulants | CPT/HCPCS: 36416; 85610 ==

== ENCOUNTER 2023-08-15 10:24 | Outpatient (CLI) | payer MEDICARE | END 2023-08-15 10:25 | disposition home or self-care (01) | LOC: LAB 10:24 | PROVIDERS: ATTEND Internal Medicine Cardiovascular Disease | DX: Z51.81 Encounter for therapeutic drug level monitoring (principal); Z79.01 Long term (current) use of anticoagulants | CPT/HCPCS: 36416; 85610 ==

== ENCOUNTER 2023-08-17 15:48 | Outpatient (CLI) | payer MEDICARE ==
--- NOTE | 2023-08-17 16:32 | Ultrasound Report ---
PROCEDURE: Soft Tissue Head or Neck INDICATIONS: LEFT SUBMANDIBULAR MASS TECHNIQUE: Real-time scanning was performed of the neck, with image documentation. COMPARISON: CT 02/27/2018 FINDINGS: There is a hypoechoic, vascular mass within the left submandibular gland measuring 3.1 x 2. 4 x 2.7 cm. Adjacent cervical chain lymph nodes appear within normal limits. Right submandibular glan d appears normal. IMPRESSION: Left submandibular gland mass measuring 3.1 x 2.4 x 2.7 cm. Recommend ENT referral as malignancy is a consideration. No cervical adenopathy. Reviewed by: Ermias Pickens MD on 08/17/2023 4:31 PM PDT Approved by: Ermias Pickens MD on 08/17/2023 4:31 PM PDT Station ID: [id number]
== END 2023-08-17 15:49 | disposition home or self-care (01) ==
LOC: DI 15:48
PROVIDERS: ATTEND Physician Assistant Medical
DX: R93.89 Abnormal findings on diagnostic imaging of other specified body structures (principal)

== ENCOUNTER 2023-09-13 15:17 | Outpatient (CLI) | payer MEDICARE ==
[2023-09-13] MEDS ORDERED: iohexoL-300 100 ML VIAL ONE (15:28)
[2023-09-13 15:39] LABS: CREATININE 0.8 mg/dL (0.6-1.3)
[2023-09-13] MEDS: iohexoL-300 100 ML VIAL IVP ONE (17:03)
--- NOTE | 2023-09-13 17:36 | CT Report ---
PROCEDURE: Soft Tissue Neck W INDICATIONS: NECK MASS CONTRAST: Omni 300 100ml TECHNIQUE: After the administration of intravenous contrast, 3.0 mm axial sections acquired from the sella to th e aortic arch. Additional oblique axial 3.0 mm sections acquired through the pharynx. 3 mm thick co maureen reformats were generated. For radiation dose reduction, the following was used: automated exp osure control, adjustment of mA and/or kV according to patient size. COMPARISON: Ultrasound neck 08/17/2023. FINDINGS: Image quality: Excellent. Lymph nodes: No enlarged lymph nodes seen throughout the neck. Vessels: Visualized vasculature appears patent. Neck spaces: The oropharynx, nasopharynx, and pharynx demonstrate no mucosal lesions. The vocal cor ds, false vocal cords, pyriform sinuses, epiglottis, vallecula, and tongue base all appear normal. E xtramucosal spaces appear unremarkable. Glands: The parotid glands appear normal. There is a 3.2 x 3.0 cm low-attenuation mass in direct anna roximation to the left submandibular gland possibly arising from the anterior aspect. It is seen on s eries 2 image 46. This corresponds to ultrasound finding on 08/17/2023. The thyroid is normal in size and there are no incidental findings. Miscellaneous: Visualized brain and orbits appear normal. Lung apices appear clear. Superficial so ft tissues appear normal. Bones: No suspicious bony lesions. Visualized sinuses and mastoids appear unremarkable. IMPRESSION: Cystic appearing mass adjacent to the left submandibular gland. Differential includes necrotic lymph node, cystic malignancy or less likely remnant of brachial cleft cyst. Further evaluation with ENT an d potential biopsy is recommended. CLINICAL RECOMMENDATION STATEMENTS: In patients <35 years with an ITN detected on CT, MRI, or extrathyroidal ultrasound, the Committee re commends further evaluation with dedicated thyroid ultrasound if the nodule is "e1 cm and has no susp icious imaging features, and if the patient has normal life expectancy. In patients "e35 years with an ITN detected on CT, MRI, or extrathyroidal ultrasound, the Committee r ecommends further evaluation with dedicated thyroid ultrasound if the nodule is "e1.5 cm and has no s uspicious imaging features, and if the patient has normal life expectancy. (ACR, 2014) Reviewed by: Becki Clements MD on 09/13/2023 5:35 PM PDT Approved by: Becki Clements MD on 09/13/2023 5:35 PM PDT Station ID: [id number]
== END 2023-09-13 15:18 | disposition home or self-care (01) ==
LOC: DI 15:17
PROVIDERS: ATTEND Otolaryngology
DX: R22.1 Localized swelling, mass and lump, neck (principal); K11.8 Other diseases of salivary glands
CPT/HCPCS: 36415; 70491; 82565; Q9967

== ENCOUNTER 2023-09-22 11:00 | Emergency (ER) | payer MEDICARE ==
[2023-09-22] MEDS: CETIRIZINE 10 MG TABLET PO STA (11:26)
[2023-09-22] MEDS: predniSONE 20 MG TABLET PO STA (11:26)
--- NOTE | 2023-09-22 11:41 | ED Physician Documentation ---
History of Present Illness - Stated complaint Stated Complaint: ALLERGIC REACTION/YELLOWJACK STING - Chief complaint Chief Complaint: Allergic Rx - History obtained from History obtained from: Patient - History of Present Illness Timing: Today Pain level max: 0 Pain level now: 0 - Additonal information Additional information: Patient is an 88-year-old male who states that he was stung by yellow jackets today. 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 Took a Claritin and Benadryl prior to arrival. He states he is feeling better now. No difficulty speaking or swallowing. Does not feel short of breath. States the rash is decreasing. Has an epinephrine pen but did not use it. No wheezing. Review of Systems Constitutional: denies: Fever, Chills GI: denies: Vomiting, Diarrhea Musculoskeletal: denies: Neck pain, Back pain PD PAST MEDICAL HISTORY - Past Medical History Cardiovascular: Atrial fibrillation - Past Surgical History Past Surgical History: Yes Ortho: Arthroscopic surgery - Present Medications Home Medications: Ambulatory Orders Medication Instructions Recorded Confirmed Atorvastatin Calcium [Lipitor] 40 mg PO DAILY 09/14/14 09/14/14 Warfarin Sodium [Coumadin] 11/18/15 Metoprolol Succinate [Toprol Xl] 25 mg PO DAILY 03/08/20 predniSONE [Deltasone] 40 mg PO DAILY #6 tablet 09/22/23 - Allergies Allergies/Adverse Reactions: Allergies Allergy/AdvReac Type Severity Reaction Status Date / Time venom-honey bee Allergy Hives Verified 09/22/23 11:18 - Social History Does the pt smoke?: No Smoking Status: Never smoker Does the pt drink ETOH?: Yes Does the pt have substance abuse?: No - Immunizations Immunizations are current?: No PD ED PE NORMAL - Vitals Vital signs reviewed: Yes - General General: Alert and oriented X 3, No acute distress - HEENT HEENT: Moist mucous membranes, Pharynx benign, Other (Normal phonation. No trismus. Normal oropharyngeal exam) - Neck Neck: Supple, no meningeal sign - Cardiac Cardiac: RRR, Strong equal pulses - Respiratory Respiratory: No respiratory distress, Clear bilaterally - Abdomen Abdomen: Soft, Non tender, Non distended - Derm Derm: Warm and dry - Neuro Neuro: Alert and oriented X 3 Results - Vitals Vitals: Vital Signs - 24 hr 09/22/23 09/22/23 09/22/23 11:10 11:47 12:36 Temperature 36.4 C L Heart Rate 75 73 69 Respiratory 18 20 16 Rate Blood Pressure 145/69 H 141/70 H 151/72 H O2 Saturation 95 97 98 Oxygen O2 Source Room air PD Medical Decision Making - ED course Complexity details: reviewed results, re-evaluated patient, considered differential, d/w patient ED course: Patient was given a dose of prednisone here. He took Claritin and Benadryl prior to arrival. The bee sting was approximately 2 hours prior to arrival. He was monitored for another hour here. Fully asymptomatic. No difficulty speaking or swallowing, no wheezing, no stridor. No evidence of anaphylaxis. Has an epinephrine pen at home. Will prescribe steroids for the next few days and he can continue to take his Claritin. Recommend he return if he worsens. Patient counseled regarding signs and symptoms for which I believe and urgent re-evaluation would be necessary. Patient with good understanding of and agreement to plan and is comfortable going home at this time This document was made in part using voice recognition software. While efforts are made to proofread this document, sound alike and grammatical errors may occur. Departure - Departure Disposition: 01 Home, Self Care Clinical Impression: Allergic reaction Qualifiers: Encounter type: initial encounter Qualified Code(s): T78.40XA - Allergy, unspecified, initial encounter Condition: Good Instructions: ED Bite Sting Insect Gen Allergic React Follow-Up: Pati Olson MD [Primary Care Provider] - Prescriptions: predniSONE [Deltasone] 40 mg PO DAILY #6 tablet Comments: We will place you steroids for the next few days. You can also take Claritin daily. A prescription was [facility] to [facility] in [place]. Please return if you worsen or if you need to use her EpiPen. Forms: PCP List Discharge Date/Time: 09/22/23 12:38
[2023-09-22 12:47] VITALS: BP 151/72; O2SAT 98
== END 2023-09-22 12:38 | disposition home or self-care (01) ==
LOC: ED 11:00
DX: T63.461A Toxic effect of venom of wasps, accidental (unintentional), initial encounter (principal); Y92.9 Unspecified place or not applicable; I48.91 Unspecified atrial fibrillation; Z79.01 Long term (current) use of anticoagulants
CPT/HCPCS: 99283; J7512

== ENCOUNTER 2023-10-03 07:35 | Outpatient (CLI) | payer MEDICARE ==
[2023-10-03 08:04] LABS: BASOPHILS # (AUTO) 0.1 10^3/uL (0.0-0.1); BASOPHILS % (AUTO) 0.8 %; EOSINOPHILS # (AUTO) 0.3 10^3/uL (0.0-0.7); EOSINOPHILS % (AUTO) 5.4 %; HCT - HEMATOCRIT 44.3 % (42.0-52.0); HGB - HEMOGLOBIN 14.1 g/dL (14.0-18.0); LYMPHOCYTES % (AUTO) 16.4 %; MEAN CORPUSCULAR HEMOGLOBIN 30.7 pg (27.0-31.0); MEAN CORPUSCULAR HGB CONC 31.8 g/dL (32.0-36.0); MEAN CORPUSCULAR VOLUME 96.5 fL (80.0-94.0); MEAN PLATELET VOLUME 9.6 fL (7.4-11.4); MONOCYTES # (AUTO) 0.5 10^3/uL (0.0-1.0); MONOCYTES % (AUTO) 8.5 %; NEUTROPHILS # (AUTO) 4.4 10^3/uL (1.5-6.6); NEUTROPHILS % (AUTO) 68.7 %; PLT - PLATELET COUNT 228 10^3/uL (130-450); RED BLOOD COUNT 4.59 10^6/uL (4.70-6.10); RED CELL DISTRIBUTION WIDTH 13.2 % (12.0-15.0); WHITE BLOOD COUNT 6.4 x10^3/uL (4.8-10.8)
[2023-10-03 08:21] LABS: CALCIUM 9.9 mg/dL (8.5-10.3); CREATININE 0.8 mg/dL (0.6-1.3); POTASSIUM 5.3 mmol/L (3.5-4.5)
== END 2023-10-03 07:36 | disposition home or self-care (01) ==
LOC: LAB 07:35
PROVIDERS: ATTEND Otolaryngology
DX: Z01.812 Encounter for preprocedural laboratory examination (principal); K11.8 Other diseases of salivary glands
CPT/HCPCS: 36415; 80048; 85025

== ENCOUNTER 2023-10-26 21:06 | Outpatient (CLI) | payer MEDICARE | END 2023-10-26 21:07 | disposition critical access hospital (66) | LOC: EMS 21:06 | DX: R10.11 Right upper quadrant pain (principal); R10.12 Left upper quadrant pain; R11.2 Nausea with vomiting, unspecified; R25.9 Unspecified abnormal involuntary movements | CPT/HCPCS: A0425; A0427 ==

== ENCOUNTER 2023-10-26 21:14 | Emergency (ER) | payer MEDICARE ==
[2023-10-26 22:24] LABS: BASOPHILS % (AUTO) 0.3 %; EOSINOPHILS # (AUTO) 0.1 10^3/uL (0.0-0.7); EOSINOPHILS % (AUTO) 0.5 %; HCT - HEMATOCRIT 39.7 % (42.0-52.0); HGB - HEMOGLOBIN 13.3 g/dL (14.0-18.0); LYMPHOCYTES # (AUTO) 0.7 10^3/uL (1.5-3.5); LYMPHOCYTES % (AUTO) 5.6 %; MEAN CORPUSCULAR HEMOGLOBIN 31.4 pg (27.0-31.0); MEAN CORPUSCULAR HGB CONC 33.5 g/dL (32.0-36.0); MEAN CORPUSCULAR VOLUME 93.6 fL (80.0-94.0); MEAN PLATELET VOLUME 9.5 fL (7.4-11.4); MONOCYTES # (AUTO) 0.7 10^3/uL (0.0-1.0); MONOCYTES % (AUTO) 5.6 %; NEUTROPHILS # (AUTO) 10.6 10^3/uL (1.5-6.6); NEUTROPHILS % (AUTO) 87.8 %; PLT - PLATELET COUNT 177 10^3/uL (130-450); RED BLOOD COUNT 4.24 10^6/uL (4.70-6.10); WHITE BLOOD COUNT 12.1 x10^3/uL (4.8-10.8)
[2023-10-26 22:37] LABS: ALBUMIN/GLOBULIN RATIO 1.3 (1.0-2.2); BILIRUBIN,TOTAL 1.3 mg/dL (0.2-1.0); CALCIUM 9.4 mg/dL (8.5-10.3); CREATININE 0.7 mg/dL (0.6-1.3); POTASSIUM 4.1 mmol/L (3.5-4.5)
[2023-10-26] MEDS: HYOSCYAMINE SL 0.125 MG TABLET SL STA (22:49)
[2023-10-26] MEDS: SODIUM CHLORIDE 0.9% 1,000 ML IV STA (22:50)
[2023-10-26] MEDS ORDERED: iohexoL-300 100 ML VIAL ONE (23:10)
--- NOTE | 2023-10-26 23:18 | ED Physician Documentation ---
History of Present Illness - Stated complaint Stated Complaint: ABD PAIN, BOWEL ISSUES - Chief complaint Chief Complaint: Abd Pain - History obtained from History obtained from: Patient - History of Present Illness Timing: Today Pain level max: 5 Pain level now: 5 - Additonal information Additional information: Patient is an 88-year-old male who has a history of head and neck cancer. He states he had a resection last week at [facility]. He states that he was placed on oxycodone and had constipation. He states attempting to have a bowel movement x 4 or 5 today, he states that finally he had a very large bowel movement followed by loose and "liquidy" stool. No blood. He states since that time he has had diffuse abdominal cramping. Has not taken anything else for pain. No vomiting. No headache. No fevers. No cough or congestion. Nothing makes it better or worse. Review of Systems Constitutional: denies: Fever, Chills GI: denies: Vomiting, Hematemesis, Bloody / black stool : denies: Dysuria Skin: denies: Rash PD PAST MEDICAL HISTORY - Past Medical History Past Medical History: Yes Cardiovascular: Atrial fibrillation - Past Surgical History Past Surgical History: Yes Ortho: Arthroscopic surgery - Present Medications Home Medications: Ambulatory Orders Medication Instructions Recorded Confirmed Atorvastatin Calcium [Lipitor] 40 mg PO DAILY 09/14/14 09/14/14 Warfarin Sodium [Coumadin] 11/18/15 Metoprolol Succinate [Toprol Xl] 25 mg PO DAILY 03/08/20 predniSONE [Deltasone] 40 mg PO DAILY #6 tablet 09/22/23 - Allergies Allergies/Adverse Reactions: Allergies Allergy/AdvReac Type Severity Reaction Status Date / Time venom-honey bee Allergy Hives Verified 10/26/23 21:18 - Social History Does the pt smoke?: No Smoking Status: Never smoker Does the pt drink ETOH?: Yes Does the pt have substance abuse?: No - Immunizations Immunizations are current?: No PD ED PE NORMAL - Vitals Vital signs reviewed: Yes - General General: Alert and oriented X 3, No acute distress - HEENT HEENT: Moist mucous membranes - Neck Neck: Other (There is a drainage tube in the patient's neck. No signs of infection. Sutures in place) - Cardiac Cardiac: RRR, Strong equal pulses - Respiratory Respiratory: No respiratory distress, Clear bilaterally - Abdomen Abdomen: Soft, Non distended, Other (Mild diffuse tenderness to palpation with no peritoneal signs.) - Back Back: No spinal TTP - Derm Derm: Warm and dry - Neuro Neuro: Alert and oriented X 3 Results - Vitals Vitals: Vital Signs - 24 hr 10/26/23 10/26/23 21:18 23:24 Temperature 36.5 C Heart Rate 82 83 Respiratory 18 16 Rate Blood Pressure 186/80 H 160/80 H O2 Saturation 94 96 Oxygen O2 Source Room air - Labs Labs: Laboratory Tests 10/26/23 10/26/23 22:20 22:20 WBC 12.1 H RBC 4.24 L Hgb 13.3 L Hct 39.7 L MCV 93.6 MCH 31.4 H MCHC 33.5 RDW 13.0 Plt Count 177 MPV 9.5 Neut # (Auto) 10.6 H Lymph # (Auto) 0.7 L Victoria # (Auto) 0.7 Eos # (Auto) 0.1 Baso # (Auto) 0.0 Absolute Nucleated RBC 0.00 Nucleated RBC % 0.0 Sodium 134 L Potassium 4.1 Chloride 100 L Carbon Dioxide 26 Anion Gap 8.0 BUN 22 H Creatinine 0.7 Estimated GFR (MDRD) 107 Glucose 155 H Calcium 9.4 Total Bilirubin 1.3 H AST 19 ALT 16 Alkaline Phosphatase 71 Total Protein 7.0 Albumin 4.0 Globulin 3.0 Albumin/Globulin Ratio 1.3 Lipase 24 - Rads (name of study) CT abdomen pelvis Relevant Findings:: See rad report PD Medical Decision Making - ED course Complexity details: reviewed results, re-evaluated patient, considered differential, d/w patient ED course: 88-year-old male with abdominal pain and cramping after having constipation and a large bowel movement today. White blood cell count is mildly elevated, likely from his recent surgery and cancer. Was given IV fluids and Levsin. CT scan was ordered of the abdomen pelvis. Pain improved in the emergency department. He was also given 0.5 mg of Dilaudid. Has oxycodone at home. CT abdomen pelvis is pending at the time of signout. Patient is signed out to the oncoming emergency department physician, suspect that he will be able to go home if the CT scan is negative. This document was made in part using voice recognition software. While efforts are made to proofread this document, sound alike and grammatical errors may occu r. Departure - Departure Clinical Impression: Abdominal pain Qualifiers: Abdominal location: unspecified location Qualified Code(s): R10.9 - Unspecified abdominal pain Condition: Good Forms: PCP List
[2023-10-26] MEDS: iohexoL-300 100 ML VIAL IVP ONE (23:31)
[2023-10-27] MEDS: HYDROmorphone 1 MG/ML CARPUJECT IVP STA (00:10)
--- NOTE | 2023-10-27 00:39 | CT Report ---
PROCEDURE: Abdomen/Pelvis W INDICATIONS: diffuse abd pain CONTRAST: Omni 300, 100mla TECHNIQUE: After the administration of intravenous contrast, a CT scan of the abdomen and pelvis was performed. Images were recorded and evaluated at appropriate window settings. Reformats: coronal and sagittal. F or radiation dose reduction, the following was used: automated exposure control, adjustment of mA and /or kV according to patient size. COMPARISON: None. FINDINGS: Image quality: Diagnostic. Lower chest: Cardiomegaly. Mild scarring at the right lung base. Dense coronary artery calcification. Liver: No solid mass. Gallbladder: No radiopaque stones or wall thickening. Biliary tree: No intrahepatic or extrahepatic dilation, accounting for age. Spleen: No splenomegaly. Pancreas: No pancreatic ductal dilation. Adrenals: No adrenal nodule. Kidneys and ureters: Symmetric enhancement. No hydronephrosis or nephrolithiasis. No solid mass or cy st requiring follow-up. No hydroureter. Stomach, bowel and peritoneum: The stomach contains fluid proximally. The gastric antrum is decompres sed with mild wall edema and mucosal hyperemia. Small bowel loops are within normal limits. No obstru ction. Normal appendix. There is moderate diffuse colon wall thickening for long segments including t he entire proximal colon to the hepatic flexure and to a lesser extent the splenic flexure and mildly in the descending colon. Mild mucosal hyperemia. No significant pericolonic inflammation or free flu id. No pathologic free fluid. Lymph nodes: No central or retroperitoneal adenopathy. Vessels: Normal caliber abdominal aorta, IVC, and portal vein. Patent portal vein. PELVIS Reproductive organs: Unremarkable. Bladder: No abnormal wall thickening, accounting for underdistention. Pelvic lymph nodes: No pelvic adenopathy by size criteria. Bones: No aggressive osseous abnormality. Other: No significant ventral or inguinal hernia. IMPRESSION: Findings suggestive of gastroenteritis and/or mild diffuse colitis, presumably infectious or inflamma tory. Coronary artery calcification. Reviewed by: Trista Mcgrath MD on 10/27/2023 12:37 AM PDT Approved by: Trista Mcgrath MD on 10/27/2023 12:37 AM PDT Station ID: [id number]
--- NOTE | 2023-10-27 00:51 | ED Physician Documentation ---
ED Addendum - Addendum Addendum: 10/27/23 00:50 Patient endorsed to me by Dr. Escalante awaiting CT report. CT interpretation shows colitis. Antibiotic prescription was provided to the patient and return precautions given. Plan to follow-up outpatient with primary care provider. Disposition Home Condition stable Impression 1 abdominal pain 2 colitis
[2023-10-27 01:16] VITALS: BP 167/89; O2SAT 95
== END 2023-10-27 01:07 | disposition home or self-care (01) ==
LOC: EDUNIT# → ED 21:14
DX: K52.9 Noninfective gastroenteritis and colitis, unspecified (principal)
CPT/HCPCS: 36415; 74177; 80053; 83690; 85025; 96374; 99283; 99284; A9270; J1170; Q9967

== ENCOUNTER 2023-10-28 08:25 | Outpatient (CLI) | payer MEDICARE | END 2023-10-28 23:59 | disposition critical access hospital (66) | LOC: EMS 08:25 | DX: R47.81 Slurred speech (principal); R41.82 Altered mental status, unspecified; R00.0 Tachycardia, unspecified; I95.9 Hypotension, unspecified | CPT/HCPCS: A0425; A0427 ==

== ENCOUNTER 2023-10-28 08:36 | Emergency (ER) | payer MEDICARE ==
[2023-10-28 08:52] LABS: BASOPHILS % (AUTO) 0.9 %; EOSINOPHILS % (AUTO) 1.5 %; HCT - HEMATOCRIT 44.9 % (42.0-52.0); HGB - HEMOGLOBIN 14.5 g/dL (14.0-18.0); LYMPHOCYTES % (AUTO) 7.6 %; MEAN CORPUSCULAR HEMOGLOBIN 30.8 pg (27.0-31.0); MEAN CORPUSCULAR HGB CONC 32.3 g/dL (32.0-36.0); MEAN CORPUSCULAR VOLUME 95.3 fL (80.0-94.0); MEAN PLATELET VOLUME 10.1 fL (7.4-11.4); MONOCYTES % (AUTO) 9.1 %; NEUTROPHILS % (AUTO) 80.4 %; PLT - PLATELET COUNT 166 10^3/uL (130-450); RED BLOOD COUNT 4.71 10^6/uL (4.70-6.10); RED CELL DISTRIBUTION WIDTH 13.4 % (12.0-15.0); WHITE BLOOD COUNT 10.8 x10^3/uL (4.8-10.8)
[2023-10-28 08:56] LABS: ABNORMAL LYMPHS % (MANUAL) 0 %
[2023-10-28 09:11] LABS: BAND NEUTROPHILS % (MANUAL) 18 %; DIFFERENTIAL COMMENT MANUAL DIFFERENTIAL; LYMPHOCYTES # (MANUAL) 2.1 10^3/uL (1.5-3.5); LYMPHOCYTES % (MANUAL) 19 %; METAMYELOCYTES % (MANUAL) 5 %; MONOCYTES # (MANUAL) 0.4 10^3/uL (0.0-1.0); NEUTROPHILS # (MANUAL) 7.8 10^3/uL (1.5-6.6); PLATELET ESTIMATE, MANUAL NORMAL (130-450,000) (NORMAL); PLATELET MORPHOLOGY NORMAL APPEARANCE (NORMAL); RBC MORPHOLOGY (MULTIPLE) NORMAL APPEARANCE (NORMAL)
--- NOTE | 2023-10-28 09:18 | XRAY Report ---
PROCEDURE: Chest for Line Placement INDICATIONS: LINE PLACEMENT TECHNIQUE: One view of the chest was acquired. COMPARISON: None. FINDINGS: Surgical changes and devices: Right-sided central line, tip of which projects to the SVC right atria l junction. Lungs and pleura: No pleural effusions or pneumothorax. Lungs are clear. Mediastinum: Mediastinal contours appear normal. Heart size is cardiomegaly. Bones and chest wall: No suspicious bony lesions. Overlying soft tissues appear unremarkable. IMPRESSION: Tip of catheter projects to SVC right atrial junction. Cardiomegaly. No pneumothorax. Reviewed by: Daryn Jules MD on 10/28/2023 9:17 AM PDT Approved by: Daryn Jules MD on 10/28/2023 9:17 AM PDT Station ID: [id number]
[2023-10-28 09:19] LABS: ALBUMIN 3.8 g/dL (3.2-5.5); ALBUMIN/GLOBULIN RATIO 1.3 (1.0-2.2); BILIRUBIN,TOTAL 3.3 mg/dL (0.2-1.0); CALCIUM 9.8 mg/dL (8.5-10.3); CREATININE 1.8 mg/dL (0.6-1.3); POTASSIUM 3.9 mmol/L (3.5-4.5); TOTAL PROTEIN 6.8 g/dL (6.4-8.9)
[2023-10-28] MEDS ORDERED: iohexoL-300 100 ML VIAL ONE ×2 (09:44→11:41)
[2023-10-28 09:55] LABS: BILIRUBIN,URINE SMALL (NEGATIVE); GLUCOSE, URINE (UA) NEGATIVE (NEGATIVE); KETONES,URINE (UA) NEGATIVE (NEGATIVE); LEUKOCYTE ESTERASE, URINE NEGATIVE (NEGATIVE); NITRITE,URINE NEGATIVE (NEGATIVE); OCCULT BLOOD,URINE LARGE (NEGATIVE); PROTEIN,URINE 100 mg/dL (NEGATIVE); UROBILINOGEN,URINE 1 (NORMAL) E.U./dL (NORMAL)
[2023-10-28 09:58] LABS: CLARITY,URINE SL. CLOUDY (CLEAR)
[2023-10-28 10:04] LABS: BACTERIA,URINE Moderate /HPF (None Seen); MUCUS,URINE Moderate Strands; SQUAMOUS EPITHELIAL CELL,UR RARE Squamous (<= Few)
[2023-10-28] MEDS: SODIUM CHLORIDE 0.9% 1,000 ML IV STA ×4 (10:44→11:50)
[2023-10-28] MEDS: DEXTROSE 50% ABBOJECT 25 GM/50 ML SYRINGE IVP STA (10:46)
[2023-10-28 10:47] LABS: B. PARAPERTUSSIS- RESP PCR PAN NOT DETECTED; B. PERTUSSIS- RESP PCR PANEL NOT DETECTED; C. PNEUMONIAE- RESP PCR PANEL NOT DETECTED; CORONAVIRUS 229E-RESP PCR NOT DETECTED; CORONAVIRUS HKU1-RESP PCR NOT DETECTED; CORONAVIRUS NL63-RESP PCR NOT DETECTED; CORONAVIRUS OC43-RESP PCR NOT DETECTED; HUMAN METAPNEUMOVIRUS NOT DETECTED; INFLUENZA A- RESP PCR PANEL NOT DETECTED; INFLUENZA B - RESP PCR PANEL NOT DETECTED; M. PNEUMONIAE- RESP PCR PANEL NOT DETECTED; PARAINFLUENZA VIRUS 1 NOT DETECTED; PARAINFLUENZA VIRUS 2 NOT DETECTED; PARAINFLUENZA VIRUS 3 NOT DETECTED; PARAINFLUENZA VIRUS 4 NOT DETECTED; RHINOVIRUS/ENTEROVIRUS NOT DETECTED; RSV- RESP PCR PANEL NOT DETECTED; SARS-CoV-2 -RESP PCR PANEL NOT DETECTED
[2023-10-28] MEDS: NOREPINEPHRINE/0.9 % NS 8 MG/250 ML BAG IV SCH (10:48)
--- NOTE | 2023-10-28 11:52 | ED Physician Documentation ---
History of Present Illness - Stated complaint Stated Complaint: HYPOTENSION - Chief complaint Chief Complaint: General - History obtained from History obtained from: Family, EMS - Additonal information Additional information: The patient comes to the emergency department via EMS for chief complaint of hypotension and altered mental status. The patient about 1 week ago had a cystic mass removed from his left neck down at [facility] by Dr. Burgos. The patient had been having lower energy but otherwise seems to be doing fine until last night. states that she noticed a large thump in the night and found that the patient had fallen to the floor. She states it took about 45 minutes for her to get the patient back up into bed and then she woke up several hours later to find that he was gone. She states that the patient had walked downstairs and sat down in his recliner in front of the TV and was sitting watching TV. However, after a while, the noticed that the patient just seemed to "zone out" and that his head slumped down. She called her daughter and granddaughter, both of whom are workers in the medical field, and they told her to call EMS so she did. The medics state that the patient seemed quite somnolent and out of it when they arrived. He has been hypotensive with blood pressures in the 50s over 30s initially and now up to the 80s over 40s. They have started 2 lines and the patient is receiving 2 L of IV fluid at this time. The patient is not able to offer any information. He is arousable to sternal rub but is confused and does not recall the events in the morning. No other complaints at this time. PD PAST MEDICAL HISTORY - Past Medical History Cardiovascular: Atrial fibrillation - Past Surgical History Past Surgical History: Yes Ortho: Arthroscopic surgery - Present Medications Home Medications: Ambulatory Orders Medication Instructions Recorded Confirmed Atorvastatin Calcium [Lipitor] 40 mg PO DAILY 09/14/14 09/14/14 Warfarin Sodium [Coumadin] 11/18/15 Metoprolol Succinate [Toprol Xl] 25 mg PO DAILY 03/08/20 predniSONE [Deltasone] 40 mg PO DAILY #6 tablet 09/22/23 Amox/Clav 875/125 [Augmentin 1 tablet PO Q12H 7 Days #14 tablet 10/27/23 875/125 Tab] - Allergies Allergies/Adverse Reactions: Allergies Allergy/AdvReac Type Severity Reaction Status Date / Time venom-honey bee Allergy Hives Verified 10/28/23 08:46 - Social History Does the pt smoke?: No Smoking Status: Never smoker Does the pt drink ETOH?: Yes Does the pt have substance abuse?: No - Immunizations Immunizations are current?: No PD ED PE NORMAL - Vitals Vital signs reviewed: Yes - General General: No acute distress, Well developed/nourished, Other (Somnolent but arousable) - HEENT HEENT: Atraumatic, PERRL, EOMI, Moist mucous membranes - Neck Neck: Supple, no meningeal sign, Other (Extensive incision over left neck consistent with the history of recent neck surgery. No erythema, induration, dehiscence, or drainage.) - Cardiac Cardiac: No murmur, Strong equal pulses, Other (Tachycardic rate, irregularly irregular rhythm) - Respiratory Respiratory: No respiratory distress, Clear bilaterally - Abdomen Abdomen: Soft, Non tender, Non distended - Derm Derm: Normal color, Warm and dry, No rash - Extremities Extremities: No deformity, No edema - Neuro Neuro: Other (Arousable to mild sternal rub, weak responses verbally, confused. Moving all 4 extremities.) - Psych Psych: Normal mood, Normal affect Results - Vitals Vitals: Vital Signs - 24 hr 10/28/23 10/28/23 10/28/23 08:37 10:53 12:00 Temperature 36.2 C L 36.7 C 36.1 C L Heart Rate 138 H 126 H 119 H Respiratory 49 H 24 42 H Rate Blood Pressure 82/48 L 107/66 96/61 O2 Saturation 97 98 96 If not protocol 7 4 : Oxygen Flow, liters/minute 10/28/23 10/28/23 10/28/23 12:33 12:54 13:00 Temperature 36.3 C L Heart Rate 149 H 137 H 147 H Respiratory 40 H 49 H 32 H Rate Blood Pressure 77/57 L 83/57 L 95/56 L O2 Saturation 94 95 95 If not protocol 4 7 7 : Oxygen Flow, liters/minute 10/28/23 10/28/23 10/28/23 13:22 13:38 13:56 Temperature 36.8 C Heart Rate 158 H 178 H 134 H Respiratory 36 H 42 H 41 H Rate Blood Pressure 120/79 94/62 141/76 H O2 Saturation 94 100 97 If not protocol 4 4 7 : Oxygen Flow, liters/minute 10/28/23 10/28/23 10/28/23 14:12 14:14 15:05 Temperature 37.0 C 40.1 C H 40.1 C H Heart Rate 151 H 151 H Respiratory 40 H 17 Rate Blood Pressure 118/78 130/80 O2 Saturation 95 97 If not protocol 2 : Oxygen Flow, liters/minute 10/28/23 10/28/23 15:21 15:28 Temperature 40.1 C H Heart Rate 164 H Respiratory Rate Blood Pressure O2 Saturation If not protocol : Oxygen Flow, liters/minute Oxygen O2 Source Mechanical ventilator - EKG (time done) 0840 EKG releavant findings:: EKG personally interpreted by author of this note. Relevant findings are: Rate: Rate (enter#) (124) Rhythm: Atrial fibrillation Intervals: RBBB QRS: Normal Ischemia: ST elevation c/w repol Compare to prior EKG: Old EKG unavailable Computer interpretation: Agree with computer 1334 EKG releavant findings:: EKG personally interpreted by author of this note. Relevant findings are: Rate: Rate (enter#) (148) Rhythm: Atrial fibrillation [place]: Normal Intervals: RBBB Compare to prior EKG: Unchanged from prior EKG Computer interpretation: Agree with computer - Labs Labs: Laboratory Tests 10/28/23 10/28/23 10/28/23 08:43 08:43 08:43 WBC 10.8 RBC 4.71 Hgb 14.5 Hct 44.9 MCV 95.3 H MCH 30.8 MCHC 32.3 RDW 13.4 Plt Count 166 MPV 10.1 Neut # (Auto) Not Reportable Lymph # (Auto) Not Reportable [place] # (Auto) Not Reportable Eos # (Auto) Not Reportable Baso # (Auto) Not Reportable Absolute Nucleated RBC Not Reportable Total Counted 100 Band Neuts % (Manual) 18 H Abnorm Lymph % (Manual) 0 Metamyelocytes % 5 H Nucleated RBC % Not Reportable Neutrophils # (Manual) 7.8 H Lymphocytes # (Manual) 2.1 Monocytes # (Manual) 0.4 Eosinophils # (Manual) 0.0 Basophils # (Manual) 0.0 Differential Comment MANUAL DIFFERENTIAL Platelet Estimate NORMAL (130-450,000) Platelet Morphology NORMAL APPEARANCE RBC Morph Micro Appear NORMAL APPEARANCE PT INR Sodium 132 L Potassium 3.9 Chloride 97 L Carbon Dioxide 20 L Anion Gap 15.0 H BUN 34 H Creatinine 1.8 H Estimated GFR (MDRD) 36 L Glucose 56 L* Lactic Acid 5.2 H* Calcium 9.8 Total Bilirubin 3.3 H AST 111 H ALT 55 Alkaline Phosphatase 55 Total Protein 6.8 Albumin 3.8 Globulin 3.0 Albumin/Globulin Ratio 1.3 Lipase 13 Urine Color Urine Clarity Urine pH Ur Specific [place] Urine Protein Urine Glucose (UA) Urine Ketones Urine Occult Blood Urine Nitrite Urine Bilirubin Urine Urobilinogen Ur Leukocyte Esterase Urine RBC Urine WBC Ur Squamous Epith Cells Urine Bacteria Urine Mucus Ur Microscopic Review Urine Culture Comments Nasal Adenovirus (PCR) Nasal B. parapertussis DNA (PCR) Nasal Coronavir 229E PCR Nasal Coronavir HKU1 PCR Nasal Coronavir NL63 PCR Nasal Coronavir OC43 PCR Nasal Enterovir/Rhinovir PCR Nasal Influenza B PCR Nasal Influenza A PCR Nasal Parainfluen 1 PCR Nasal Parainfluen 2 PCR Nasal Parainfluen 3 PCR Nasal Parainfluen 4 PCR Nasal RSV (PCR) Nasal B.pertussis DNA PCR Nasal C.pneumoniae (PCR) Volodymyr Human Metapneumo PCR Nasal M.pneumoniae (PCR) Nasal SARS-CoV-2 (PCR) 10/28/23 10/28/23 10/28/23 08:43 09:01 09:23 WBC RBC Hgb Hct MCV MCH MCHC RDW Plt Count MPV Neut # (Auto) Lymph # (Auto) [place] # (Auto) Eos # (Auto) Baso # (Auto) Absolute Nucleated RBC Total Counted Band Neuts % (Manual) Abnorm Lymph % (Manual) Metamyelocytes % Nucleated RBC % Neutrophils # (Manual) Lymphocytes # (Manual) Monocytes # (Manual) Eosinophils # (Manual) Basophils # (Manual) Differential Comment Platelet Estimate Platelet Morphology RBC Morph Micro Appear PT 18.6 H INR 1.8 H Sodium Potassium Chloride Carbon Dioxide Anion Gap BUN Creatinine Estimated GFR (MDRD) Glucose Lactic Acid Calcium Total Bilirubin AST ALT Alkaline Phosphatase Total Protein Albumin Globulin Albumin/Globulin Ratio Lipase Urine Color DARK YELLOW Urine Clarity SL. CLOUDY Urine pH 6.0 Ur Specific [place] 1.020 Urine Protein 100 H Urine Glucose (UA) NEGATIVE Urine Ketones NEGATIVE Urine Occult Blood LARGE H Urine Nitrite NEGATIVE Urine Bilirubin SMALL H Urine Urobilinogen 1 (NORMAL) Ur Leukocyte Esterase NEGATIVE Urine RBC 11-25 H Urine WBC 4-5 Ur Squamous Epith Cells RARE Squamous Urine Bacteria Moderate H Urine Mucus Moderate Strands Ur Microscopic Review INDICATED Urine Culture Comments NOT INDICATED Nasal Adenovirus (PCR) NOT DETECTED Nasal B. parapertussis DNA (PCR) NOT DETECTED Nasal Coronavir 229E PCR NOT DETECTED Nasal Coronavir HKU1 PCR NOT DETECTED Nasal Coronavir NL63 PCR NOT DETECTED Nasal Coronavir OC43 PCR NOT DETECTED Nasal Enterovir/Rhinovir PCR NOT DETECTED Nasal Influenza B PCR NOT DETECTED Nasal Influenza A PCR NOT DETECTED Nasal Parainfluen 1 PCR NOT DETECTED Nasal Parainfluen 2 PCR NOT DETECTED Nasal Parainfluen 3 PCR NOT DETECTED Nasal Parainfluen 4 PCR NOT DETECTED Nasal RSV (PCR) NOT DETECTED Nasal B.pertussis DNA PCR NOT DETECTED Nasal C.pneumoniae (PCR) NOT DETECTED Volodymyr Human Metapneumo PCR NOT DETECTED Nasal M.pneumoniae (PCR) NOT DETECTED Nasal SARS-CoV-2 (PCR) NOT DETECTED - Rads (name of study) Chest x-ray Relevant Findings:: Final report received, See rad report (Mild cardiomegaly. Right subclavian central line in good placement.) PD Medical Decision Making - ED course Complexity details: reviewed old records, reviewed results, re-evaluated patient, considered differential, d/w family ED course: The patient was evaluated upon arrival in the emergency department immediately by myself. He was hypotensive and tachycardic with a rhythm that appeared to be atrial fibrillation with rapid ventricular response in the 120s to 130s. The patient was finishing his first 2 L of fluid via EMS and was immediately started on 2 more with the rapid infuser. His blood pressure did steadily trend up, but given that the patient was old and frail and seemed to be possibly septic, I feel he should have a central line placed. This was done and found to be in good placement. He was worked up with laboratory studies including CBC, which showed a normal white blood cell count. His ER abdominal panel showed some el evation in his BUN and creatinine at 34 and 1.8 and GFR low at 36. Glucose was 56. Lactic acid level was 5.2. His AST was mildly elevated but remainder of liver markers were negative. Sodium was slightly low at 132. Patient's urinalysis was negative other than for blood and his respiratory PCR panel was negative. The patient's blood pressure did begin to trend down again and was in the 70s over 40s on reevaluation. The patient was started on his fifth liter of normal saline and also Levophed was started. The patient did respond well to this initially, but required increasing levels of titration to maintain a normotensive state. The patient seem to be septic but I did not have a source initially, so I started him on vancomycin and cefepime for broad coverage. He had been treated with D50 for hypoglycemia and repeat fingerstick glucose was still found to be only 70. I did start the patient on a maintenance of D10. The patient had become hypotensive again and we had put the Levophed all the way up to 80 mcg/min and at this point added vasopressin. This did help and the patient's blood pressure improved to 120s over 90s. The patient was persistently tachycardic throughout his stay in the emergency department, though with highly variable heart rate. He did begin to creep up into the 150s Given that he now had a better blood pressure, he was given a dose of diltiazem 10 mg. This brought him down into the 90s to the low 100s though he did begin to creep up again. He was found to be febrile as well. He had CTs of the head, C-spine, soft tissue neck, angio of the chest, and CT with contrast of the abdomen and pelvis. The CT of the head showed no acute abnormalities. C-spine was atraumatic. Soft tissue neck CT did not show any acute issues with the surgical site. CT angio chest did not show a postoperative PE. The CT with contrast of the abdomen and pelvis showed a small bowel obstruction with a large volume reflux into the proximal small bowel, stomach, and esophagus. There was also a segment of wall thickening and luminal narrowing extending from the distal ileum to the mid ascending colon. I discussed with the patient's the exceedingly critical state of the patient, as well as his exceedingly poor prognosis. I have sought to be as clear as possible so that the can make a decision about her desires for care, should the patient rest. She states that just a week ago he was acting like himself and she would like to at least try to revive him if he codes. She does understand that this may not be successful and that she would prefer to at least try before deciding to call off efforts. At this, I did begin to pursue transfer for the patient. I ultimately spoke with a number of specialist from different facilities including our own Dr. Grande, who is willing to help in what ever way he could, but acknowledged that this patient would be better served at a larger facility with more specialty and critical care resources. I ultimately spoke with Dr. Caro of general surgery at [facility] And Dr. Mckee, the critical care attending at the same facility. The patient was accepted in transfer by these specialists. The patient was in a lot of pain and given that we expected to transfer, we ultimately decided to intubate the patient, given his incredibly critical state. The patient was intubated and was started on propofol as well as a little low- dose diltiazem drip as his heart rate was ranging anywhere from the 120s to 170s. The patient was continuing to be tachycardic and we will titrate his drip as best we can in consideration of his hypotension. His temperature was found to be 40 C and so he was given a rectal dose of Tylenol 650 mg, as well. At this point in time we have been informed that a bed is available for the patient and he should be flying momentarily. I have signed the patient out to my oncoming colleague at change of shift with this expectation; however, we have not yet been given the go ahead to fly the patient, but that is the plan. - Critical Care Time(min): 120 Comments: Critical care time was necessary, secondary to high probability of imminent and life-threatening decline, do to septic shock, secondary to ischemic bowel, as well as due to acute cardiovascular compromise from A-fib with RVR, as well. Time Includes: Direct patient care, Review records, Reassess patient, Document care, Coordinate care, Medical consult, Family consult for tx dec, See progress note Data interpretation: Labs, Pulse ox, CXR, Prior EKG, Cardiac output, See progress note Procedures included in critical care time: Ventilator mgmt, See progress note Procedures excluded from critical care time: Central IV, Intubation, See progress note Departure - Departure Disposition: 02 Transfer Acute Care Hosp Clinical Impression: Septic shock, Small bowel obstruction, Acute intestinal ischemic syndrome, Atrial fibrillation with RVR Condition: Critical Forms: PCP List
--- NOTE | 2023-10-28 12:24 | CT Report ---
PROCEDURE: Head WO INDICATIONS: aloc TECHNIQUE: Noncontrast 4.5 mm thick angled axial sections acquired from the foramen magnum to the vertex. For r adiation dose reduction, the following was used: automated exposure control, adjustment of mA and/or kV according to patient size. COMPARISON: Brain MRI dated 11/18/2015. FINDINGS: Image quality: Excellent. CSF spaces: Basal cisterns are patent. No extra-axial fluid collections. Ventricles are normal in size and shape. Brain: No midline shift. No intracranial masses or hemorrhage. Arriola-white matter interface is norm al. Extensive cavernous carotid calcifications and vertebral artery calcifications. Age-related volum e loss and mild, age-appropriate small vessel ischemic change. Skull and face: Calvarium and visualized facial bones are intact, without suspicious lesions. Sinuses: Visualized sinuses and mastoids are clear. IMPRESSION: No acute intracranial pathology. Reviewed by: Daryn Jules MD on 10/28/2023 12:23 PM PDT Approved by: Daryn Jules MD on 10/28/2023 12:23 PM PDT Station ID: [id number]
--- NOTE | 2023-10-28 12:25 | CT Report ---
PROCEDURE: Cervical Spine WO INDICATIONS: fall/head inj/aloc TECHNIQUE: Noncontrast 3 mm thick sections acquired from the skull base to the T4 level. Sagittal and coronal r eformats were then constructed. For radiation dose reduction, the following was used: automated exp osure control, adjustment of mA and/or kV according to patient size. COMPARISON: None. FINDINGS: Image quality: Excellent. Bones: No fractures or dislocations. Visualized superior ribs are intact. Cervical spondylitic willis nge with multilevel facet arthropathy. Soft tissues: Prevertebral soft tissues are normal in thickness. No paravertebral hematomas. No ap ical pneumothoraces. IMPRESSION: 1. No acute cervical fracture or dislocation. 2. Cervical spondylosis. Reviewed by: Daryn Jules MD on 10/28/2023 12:24 PM PDT Approved by: Daryn Jlues MD on 10/28/2023 12:24 PM PDT Station ID: [id number]
--- NOTE | 2023-10-28 12:33 | CT Report ---
PROCEDURE: Soft Tissue Neck W INDICATIONS: recent surg I D abscess L neck, sepsis CONTRAST: omni 300, 100 TECHNIQUE: After the administration of intravenous contrast, 3.0 mm axial sections acquired from the sella to th e aortic arch. Additional oblique axial 3.0 mm sections acquired through the pharynx. 3 mm thick co maureen reformats were generated. For radiation dose reduction, the following was used: automated exp osure control, adjustment of mA and/or kV according to patient size. COMPARISON: 09/13/2023. FINDINGS: Image quality: Excellent. Lymph nodes: No enlarged lymph nodes seen throughout the neck. Vessels: Visualized vasculature appears patent. Neck spaces: Recent drainage of a cystic lesion in the left submandibular region. There is a small a mount of associated air. No residual fluid collection noted. No abscess identified. Mild inflammatory change present in the adjacent fat. The oropharynx, nasopharynx, and pharynx demonstrate no mucosal lesions. The vocal cords, false vocal cords, pyriform sinuses, epiglottis, vallecula, and tongue bas e all appear normal. Extramucosal spaces appear unremarkable. Glands: The parotid and submandibular glands appear normal. The thyroid is normal in size and there are no incidental findings. Miscellaneous: Visualized brain and orbits appear normal. Lung apices appear clear. Superficial so ft tissues appear normal. Bones: No suspicious bony lesions. Visualized sinuses and mastoids appear unremarkable. IMPRESSION: 1. No evidence of residual fluid collection post I&D of the left neck. No other acute findings. CLINICAL RECOMMENDATION STATEMENTS: In patients <35 years with an ITN detected on CT, MRI, or extrathyroidal ultrasound, the Committee re commends further evaluation with dedicated thyroid ultrasound if the nodule is "e1 cm and has no susp icious imaging features, and if the patient has normal life expectancy. In patients "e35 years with an ITN detected on CT, MRI, or extrathyroidal ultrasound, the Committee r ecommends further evaluation with dedicated thyroid ultrasound if the nodule is "e1.5 cm and has no s uspicious imaging features, and if the patient has normal life expectancy. (ACR, 2014) Reviewed by: Daryn Jules MD on 10/28/2023 12:32 PM PDT Approved by: Daryn Jules MD on 10/28/2023 12:32 PM PDT Station ID: [id number]
--- NOTE | 2023-10-28 12:40 | CT Report ---
PROCEDURE: Abdomen/Pelvis W INDICATIONS: RLQ abd pain CONTRAST: omni 300, 100 TECHNIQUE: After the administration of intravenous contrast, a CT scan of the abdomen and pelvis was performed. Images were recorded and evaluated at appropriate window settings. Reformats: coronal and sagittal. F or radiation dose reduction, the following was used: automated exposure control, adjustment of mA and /or kV according to patient size. COMPARISON: 10/26/2023. FINDINGS: Image quality: Diagnostic. Lower chest: Unremarkable. Liver: No solid mass. Gallbladder: Distended without stones. There is vicarious excretion of contrast into the bladder Biliary tree: No intrahepatic or extrahepatic dilation, accounting for age. Spleen: No splenomegaly. Pancreas: No pancreatic ductal dilation. Adrenals: No adrenal nodule. Kidneys and ureters: No hydronephrosis. No renal cystic lesion which requires follow up. No solid mas s. Stomach, bowel and peritoneum: Interval development of diffuse wall thickening of the distal ileum an d cecum and proximal and mid ascending colon, with associated narrowing. Consider ischemic versus seg mental infectious ileocolitis. Additionally, a small bowel obstruction has developed. Loops of small bowel are dilated to 3.7 cm. The site of the small bowel obstruction may potentially not be related t o the distal ileal segment. The stomach is dilated and filled with fluid. Fluid is refluxing into the esophagus, which is dilated. Lymph nodes: No central or retroperitoneal adenopathy. Vessels: No infrarenal aortic aneurysm. Patent portal vein. PELVIS Reproductive organs: Unremarkable. Bladder: No abnormal wall thickening, accounting for underdistention. Pelvic lymph nodes: No pelvic adenopathy by size criteria. Bones: No aggressive osseous abnormality. Other: No significant ventral or inguinal hernia. IMPRESSION: 1. There are potentially 2 different processes going on in the abdomen. There is a definite small bow el obstruction which results and gastric dilatation and reflux of fluid into the esophagus, which is dilated. 2. Development of diffuse wall thickening and a degree of narrowing involving the distal ileum and ce cum and proximal and mid ascending colon. Consider possible ischemic ileocolitis versus segmental inf ectious colitis. 3. Development of mild pelvic ascites. Reviewed by: Daryn Jules MD on 10/28/2023 12:39 PM PDT Approved by: Daryn Jules MD on 10/28/2023 12:39 PM PDT Station ID: [id number]
[2023-10-28] MEDS: DEXTROSE 10% 1,000 ML IV STA ×2 (12:45→12:49)
--- NOTE | 2023-10-28 12:45 | CT Report ---
PROCEDURE: Angio Chest INDICATIONS: tachycardic, hypotensive, recent surgery CONTRAST: omni 300, 100 TECHNIQUE: After the administration of intravenous contrast, 2 mm axial images were acquired from the pulmonary apices to the posterior costophrenic angles during the arterial phase. In addition, 1 mm lung kernel and 5 mm soft tissue kernel reconstructions were performed. 3-dimensional coronal oblique maximum int ensity projection (MIP) reformats, 8 mm axial MIP, and 5 mm coronal and sagittal MPR reformats were t hen performed through the thorax. For radiation dose reduction, the following was used: automated exp osure control, adjustment of mA and/or kV according to patient size. COMPARISON: CT of the abdomen and pelvis from the same date. FINDINGS: Image quality: Excellent. Large vessels: No pulmonary emboli. Unremarkable aorta, normal caliber. Lungs and pleura: No consolidation. No pleural effusions. No pneumothorax. No suspicious pulmonary n odules which require follow up. Mediastinum: Cardiomegaly, most notably involving the right atrium. There is muscle hypertrophy of th e left ventricle and dilatation of the left atrium. No pericardial effusion. No large vessel abnormal ity. The esophagus is dilated and filled with fluid. The stomach is dilated and filled with fluid. Th ere is a small bowel obstruction seen on the accompanying CT of the abdomen and pelvis. No mediastina l adenopathy by size criteria. Chest wall and lower neck: Thyroid is unremarkable. No axillary or supraclavicular adenopathy by size . Bones: No aggressive osseous abnormality. Upper Abdomen: Unremarkable. IMPRESSION: 1. Small bowel obstruction noted on the CT of the abdomen and pelvis, with resultant gastric distenti on and reflux of fluid throughout the esophagus, which is dilated. 2. No acute pulmonary emboli. No acute pulmonary process. 3. Left ventricular hypertrophy, biatrial dilatation, relatively impressive involving the right atriu m Reviewed by: Daryn Jules MD on 10/28/2023 12:44 PM PDT Approved by: Daryn Jules MD on 10/28/2023 12:44 PM PDT Station ID: [id number]
[2023-10-28] MEDS: diltiaZEM INJ 5 MG/ML VIAL IVP STA (13:40)
[2023-10-28] MEDS: VASOPRESSIN 20 UNIT in DEXTROSE 5% 99 ML IV STA (13:42)
[2023-10-28 13:44] LABS: INR 1.8 (0.8-1.2); PT - PROTHROMBIN TIME 18.6 secs (9.9-12.6)
[2023-10-28] MEDS: DIGOXIN 500 MCG/2 ML AMP IVP STA (13:46)
[2023-10-28] MEDS: iohexoL-300 100 ML VIAL IVP ONE (14:08)
[2023-10-28] MEDS: SUCCINYLCHOLINE 200 MG/10 ML VIAL IVP STA (14:38)
[2023-10-28] MEDS: ETOMIDATE 40 MG/20 ML VIAL IVP STA (14:38)
[2023-10-28] MEDS: ROCURONIUM 50 MG/5 ML VIAL IVP STA (14:39)
[2023-10-28] MEDS: ACETAMINOPHEN 650 MG SUPP PR STA (14:58)
[2023-10-28] MEDS: PROPOFOL 1000 MG/100 ML 1,000 MG/100 ML BOTTLE IV STA (15:04)
[2023-10-28] MEDS: diltiaZEM INJ 125 MG in DEXTROSE 5% 100 ML IV STA (15:20)
[2023-10-28] MEDS ORDERED: VECURONIUM 10 MG VIAL ONE (15:22)
[2023-10-28] MEDS: VECURONIUM 10 MG VIAL IVP STA (15:23)
--- NOTE | 2023-10-28 15:41 | XRAY Report ---
PROCEDURE: Chest 1V INDICATIONS: intubation TECHNIQUE: One view of the chest was acquired. COMPARISON: None. FINDINGS: Surgical changes and devices: ET tube tip is approximately 1.9 cm above the sindhu. NG tube and cent ral line in satisfactory position. Tip of central line projects to SVC right atrial junction. Lungs and pleura: No pleural effusions or pneumothorax. Question very mild interstitial pulmonary ed barby Mediastinum: Mediastinal contours appear normal. Heart size is normal. Bones and chest wall: No suspicious bony lesions. Overlying soft tissues appear unremarkable. IMPRESSION: 1. ET tube tip approximately 1.9 cm above the sindhu. Question very mild congestive heart failure Reviewed by: Daryn Jules MD on 10/28/2023 3:39 PM PDT Approved by: Daryn Jules MD on 10/28/2023 3:39 PM PDT Station ID: [id number]
[2023-10-28 15:42] LABS: MAGNESIUM 1.7 mg/dL (1.7-2.3)
[2023-10-28 15:47] LABS: PHOSPHORUS 2.4 mg/dL (2.5-5.0)
[2023-10-28 16:00] VITALS: BP 134/83; O2SAT 99
--- NOTE | 2023-10-28 16:14 | ED Physician Documentation ---
ED Addendum - Addendum Addendum: 10/28/23 16:12 While the patient was awaiting transfer to [facility], decided to attempt cardioversion as he continued to have a tachyarrhythmia. Cardioversion was attempted x 3, remains in a tachyarrhythmia. Therefore no further attempts were made for cardioversion. Prior to the patient being transferred via [facility], vancomycin and Rocephin were given. Departure - Departure Disposition: 02 Transfer Acute Care Hosp Clinical Impression: Septic shock, Small bowel obstruction, Acute intestinal ischemic syndrome, Atrial fibrillation with RVR, Tachyarrhythmia Condition: Critical Forms: PCP List Procedures - Cardioversion - Major 1 Time of attempt: 15:30 Indication: Tachyarrhythmia, Clinically unstable, Hypotension Risks, benefits, alternatives explained to: N/A pt unstable Prep: IV, O2, crime lab technician CS via: Pads Sync: Biphasic, 100j Post cardioversion rhythm: A-fib Performed by: ALEX QUILES 2 Time of attempt: 15:31 Indication: Tachyarrhythmia, Clinically unstable Risks, benefits, alternatives explained to: N/A pt unstable Prep: IV, O2, crime lab technician CS via: Pads Sync: Biphasic, 150j Post cardioversion rhythm: A-fib Performed by: ALEX QUILES 3 Time of attempt: 15:34 Indication: Tachyarrhythmia, Clinically unstable, Altered LOC Risks, benefits, alternatives explained to: N/A pt unstable Prep: IV, O2, crime lab technician CS via: Pads Sync: Biphasic, 200j Post cardioversion rhythm: A-fib Performed by: ALEX QUILES
[2023-10-28] MEDS: cefTRIAXone 1 GM VIAL IVP STA (16:35)
[2023-10-28] MEDS ORDERED: cefTRIAXone 1 GM VIAL ONE (16:36)
[2023-10-28] MEDS: VANCOMYCIN INJ 1 GM in SODIUM CHLORIDE 0.9% 250 ML IV STA (16:49)
[2023-10-28] MEDS: cefTRIAXone 1 GM in SODIUM CHLORIDE 0.9% MINIBAG 100 ML IV STA (16:49)
== END 2023-10-28 16:50 | disposition short-term general hospital (02) ==
LOC: EDBD → EDUNIT# → ED 08:36
DX: K56.609 Unspecified intestinal obstruction, unspecified as to partial versus complete obstruction (principal); R65.21 Severe sepsis with septic shock; K55.019 Acute (reversible) ischemia of small intestine, extent unspecified; R18.8 Other ascites; R00.0 Tachycardia, unspecified; I48.91 Unspecified atrial fibrillation; Z79.01 Long term (current) use of anticoagulants; Z79.899 Other long term (current) drug therapy
CPT/HCPCS: 31500; 36415; 36556; 70450; 70491; 71045; 71275; 72125; 74177; 80053; 81001; 83605; 83690; 83735; 84100; 85025; 85610; 87040; 87633; 92960; 93005; 94002; 96365; 96366; 96367; 96375; 96376; 99291; 99292; A9270; J0330; J3370; J3490; Q9967; 81003; 87086